=== PATIENT | female | born 1975 | race Caucasian/White ===

== ENCOUNTER 2019-01-26 16:41 | Emergency (ER) | payer OTHER ==
[2019-01-26 17:03] VITALS: BP 158/88; PULSE 120; RESP 20; TEMP 98.6
[2019-01-26] MEDS ORDERED: DIPH,PERTUS(ACELL)TETVAC-LF 0.5 ML VIAL IM ONE (17:11)
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
== END 2019-01-26 18:13 | disposition home or self-care (01) ==
LOC: EC 16:41
DX: S51.851A Open bite of right forearm, initial encounter (principal); Z88.0 Allergy status to penicillin; Z23 Encounter for immunization; Y04.1XXA Assault by human bite, initial encounter; Y93.89 Activity, other specified; Y92.811 Bus as the place of occurrence of the external cause; Y99.0 Civilian activity done for income or pay
CPT/HCPCS: 90471; 90715; 99283

== ENCOUNTER 2020-10-22 12:37 | Observation (INO) | payer OTHER ==
--- NOTE | 2020-10-22 13:03 | ED ---
General Adult HPI - General Chief complaint: Extremity Injury, Lower Stated complaint: Swelling in Legs Time Seen by Provider: 10/22/20 12:45 Source: patient, RN notes reviewed, old records reviewed Mode of arrival: ambulatory Limitations: no limitations - History of Present Illness Initial comments: This is a 44-year-old female presents emergency Department with a past medical history significant for diabetes and high blood pressure. Patient states starting yesterday she started noticing swelling in both legs but particularly the left one and became much more taut red and tender since yesterday. Patient denies any difficulty breathing shortest breath. Patient denies any chest pain. Patient denies any lightheadedness or dizziness. Patient denies any control pills. Patient denies any recent long trips or travel. Patient denies any abdominal pain patient denies nausea vomiting diarrhea. Patient denies any fever chills or cough. - Related Data Home Medications Medication Instructions Recorded Confirmed Desvenlafaxine Succinate [Pristiq 50 mg PO HS 10/22/20 10/22/20 ER] Ferrous Sulfate [Feosol] 325 mg PO DAILY 10/22/20 10/22/20 amLODIPine [Norvasc] 10 mg PO HS 10/22/20 10/22/20 lisinopriL [Zestril] 20 mg PO HS 10/22/20 10/22/20 metFORMIN HCL ER [Glucophage XR] 500 mg PO BID 10/22/20 10/22/20 Allergies Allergy/AdvReac Type Severity Reaction Status Date / Time amoxicillin [Amoxicillin] Allergy Rash/Hives Verified 10/22/20 12:44 Penicillins Allergy Unknown Verified 10/22/20 12:44 Childhood Review of Systems ROS Statement: Those systems with pertinent positive or pertinent negative responses have been documented in the HPI. ROS Other: All systems not noted in ROS Statement are negative. Past Medical History Past Medical History: Hypertension Additional Past Medical History / Comment(s): Obesity History of Any Multi-Drug Resistant Organisms: None Reported Past Surgical History: Section, Tubal Ligation Past Anesthesia/Blood Transfusion Reactions: No Reported Reaction Past Psychological History: Depression Smoking Status: Never smoker Past Alcohol Use History: Rare Past Drug Use History: None Reported - Past Family History Mother Family Medical History: Coronary Artery Disease (CAD), Diabetes Mellitus Father Family Medical History: Cancer, Coronary Artery Disease (CAD) General Exam - General Exam Comments Initial Comments: GENERAL: Patient is well-developed and well-nourished. Patient is nontoxic and well- hydrated and is in mild distress. ENT: Neck is soft and supple. No significant lymphadenopathy is noted. Oropharynx is clear. Moist mucous membranes. Neck has full range of motion without eliciting any pain. EYES: The sclera were anicteric and conjunctiva were pink and moist. Extraocular movements were intact and pupils were equal round and reactive to light. Eyelids were unremarkable. PULMONARY: Unlabored respirations. Good breath sounds bilaterally. No audible rales rhonchi or wheezing was noted. CARDIOVASCULAR: Patient is tachycardic at about 110 beats a minute ABDOMEN: Soft and nontender with normal bowel sounds. SKIN: Skin is clear with no lesions or rashes and otherwise unremarkable. NEUROLOGIC: Patient is alert and oriented x3. Cranial nerves II through XII are grossly intact. Motor and sensory are also intact. Normal speech, volume and content. Symmetrical smile. MUSCULOSKELETAL: Normal extremities with adequate strength and full range of motion. Right leg has 1+ edema left leg is very taut were swollen and edematous and very tender to touch and it is erythematous from the proximal leg down both posteriorly and anteriorly. Calf is very tender to palpation on the left. LYMPHATICS: No significant lymphadenopathy is noted PSYCHIATRIC: Normal psychiatric evaluation. Limitations: no limitations Course Vital Signs 10/22/20 12:46 Temperature 98.3 F Pulse Rate 114 H Respiratory 18 Rate Blood Pressure 117/83 O2 Sat by Pulse 96 Oximetry Medical Decision Making - Medical Decision Making Ultrasound showed no DVT but did show 2 large lymph nodes in the left groin. EKG shows normal sinus rhythm at [address] interval is 160 QRS is 90 QT interval 356 QTC is 452. Patient's EKG shows no ST segment elevation or depression. I spoke with Dr. Siddiqui and he wanted the patient admitted. I spoke with Dr. Farias she agreed to admit the patient admitted the patient she wanted me to consult Dr. Lang - Lab Data Result diagrams: 10/22/20 13:14 10/22/20 13:14 Lab Results 10/22/20 10/22/20 10/22/20 Range/Units 13:14 13:14 13:14 WBC 9.2 (3.8-10.6) k/uL RBC 5.09 (3.80-5.40) m/uL Hgb 13.4 (11.4-16.0) gm/dL Hct 40.4 (34.0-46.0) % MCV 79.4 L (80.0-100.0) fL MCH 26.4 (25.0-35.0) pg MCHC 33.2 (31.0-37.0) g/dL RDW 15.3 (11.5-15.5) % Plt Count 359 (150-450) k/uL MPV 7.3 Neutrophils % 73 % Lymphocytes % 20 % Monocytes % 4 % Eosinophils % 1 % Basophils % 0 % Neutrophils # 6.7 (1.3-7.7) k/uL Lymphocytes # 1.9 (1.0-4.8) k/uL Monocytes # 0.3 (0-1.0) k/uL Eosinophils # 0.1 (0-0.7) k/uL Basophils # 0.0 (0-0.2) k/uL PT 9.9 (9.0-12.0) sec INR 0.9 (<1.2) APTT 22.3 (22.0-30.0) sec Sodium 139 (137-145) mmol/L Potassium 4.0 (3.5-5.1) mmol/L Chloride 105 (98-107) mmol/L Carbon Dioxide 24 (22-30) mmol/L Anion Gap 10 mmol/L BUN 12 (7-17) mg/dL Creatinine 0.46 L (0.52-1.04) mg/dL Est GFR (CKD-EPI)AfAm >90 (>60 ml/min/1.73 sqM) Est GFR (CKD-EPI)NonAf >90 (>60 ml/min/1.73 sqM) Glucose 206 H (74-99) mg/dL Lactic Ac Sepsis Rflx Plasma Lactic Acid Jose Luis (0.7-2.0) mmol/L Calcium 9.6 (8.4-10.2) mg/dL Magnesium 1.6 (1.6-2.3) mg/dL Total Bilirubin 0.2 (0.2-1.3) mg/dL AST 23 (14-36) U/L ALT 20 (4-34) U/L Alkaline Phosphatase 80 (38-126) U/L Troponin I (0.000-0.034) ng/mL NT-Pro-B Natriuret Pep pg/mL Total Protein 7.0 (6.3-8.2) g/dL Albumin 4.1 (3.5-5.0) g/dL 10/22/20 10/22/20 10/22/20 Range/Units 13:14 13:14 13:14 WBC (3.8-10.6) k/uL RBC (3.80-5.40) m/uL Hgb (11.4-16.0) gm/dL Hct (34.0-46.0) % MCV (80.0-100.0) fL MCH (25.0-35.0) pg MCHC (31.0-37.0) g/dL RDW (11.5-15.5) % Plt Count (150-450) k/uL MPV Neutrophils % % Lymphocytes % % Monocytes % % Eosinophils % % Basophils % % Neutrophils # (1.3-7.7) k/uL Lymphocytes # (1.0-4.8) k/uL Monocytes # (0-1.0) k/uL Eosinophils # (0-0.7) k/uL Basophils # (0-0.2) k/uL PT (9.0-12.0) sec INR (<1.2) APTT (22.0-30.0) sec Sodium (137-145) mmol/L Potassium (3.5-5.1) mmol/L Chloride (98-107) mmol/L Carbon Dioxide (22-30) mmol/L Anion Gap mmol/L BUN (7-17) mg/dL Creatinine (0.52-1.04) mg/dL Est GFR (CKD-EPI)AfAm (>60 ml/min/1.73 sqM) Est GFR (CKD-EPI)NonAf (>60 ml/min/1.73 sqM) Glucose (74-99) mg/dL Lactic Ac Sepsis Rflx Plasma Lactic Acid Jose Luis 2.6 H* (0.7-2.0) mmol/L Calcium (8.4-10.2) mg/dL Magnesium (1.6-2.3) mg/dL Total Bilirubin (0.2-1.3) mg/dL AST (14-36) U/L ALT (4-34) U/L Alkaline Phosphatase (38-126) U/L Troponin I <0.012 (0.000-0.034) ng/mL NT-Pro-B Natriuret Pep 65 pg/mL Total Protein (6.3-8.2) g/dL Albumin (3.5-5.0) g/dL 10/22/20 Range/Units 13:54 WBC (3.8-10.6) k/uL RBC (3.80-5.40) m/uL Hgb (11.4-16.0) gm/dL Hct (34.0-46.0) % MCV (80.0-100.0) fL MCH (25.0-35.0) pg MCHC (31.0-37.0) g/dL RDW (11.5-15.5) % Plt Count (150-450) k/uL MPV Neutrophils % % Lymphocytes % % Monocytes % % Eosinophils % % Basophils % % Neutrophils # (1.3-7.7) k/uL Lymphocytes # (1.0-4.8) k/uL Monocytes # (0-1.0) k/uL Eosinophils # (0-0.7) k/uL Basophils # (0-0.2) k/uL PT (9.0-12.0) sec INR (<1.2) APTT (22.0-30.0) sec Sodium (137-145) mmol/L Potassium (3.5-5.1) mmol/L Chloride (98-107) mmol/L Carbon Dioxide (22-30) mmol/L Anion Gap mmol/L BUN (7-17) mg/dL Creatinine (0.52-1.04) mg/dL Est GFR (CKD-EPI)AfAm (>60 ml/min/1.73 sqM) Est GFR (CKD-EPI)NonAf (>60 ml/min/1.73 sqM) Glucose (74-99) mg/dL Lactic Ac Sepsis Rflx Y Plasma Lactic Acid Jose Luis (0.7-2.0) mmol/L Calcium (8.4-10.2) mg/dL Magnesium (1.6-2.3) mg/dL Total Bilirubin (0.2-1.3) mg/dL AST (14-36) U/L ALT (4-34) U/L Alkaline Phosphatase (38-126) U/L Troponin I (0.000-0.034) ng/mL NT-Pro-B Natriuret Pep pg/mL Total Protein (6.3-8.2) g/dL Albumin (3.5-5.0) g/dL Disposition Clinical Impression: Leg swelling, Lymphadenopathy Disposition: ADMITTED IP TO THIS HOSP Referrals: Tono Siddiqui MD [Primary Care Provider] - 1-2 days Time of Disposition: 15:39
[2020-10-22 13:26] LABS: Basophils % (A) 0 %; Eosinophils # (A) 0.1 k/uL (0-0.7); Eosinophils % (A) 1 %; HCT 40.4 % (34.0-46.0); HGB 13.4 gm/dL (11.4-16.0); Lymphocytes # (A) 1.9 k/uL (1.0-4.8); Lymphocytes % (A) 20 %; MCH 26.4 pg (25.0-35.0); MCHC 33.2 g/dL (31.0-37.0); MCV 79.4 fL (80.0-100.0); Mean Platelet Volume 7.3; Monocytes # (A) 0.3 k/uL (0-1.0); Monocytes % (A) 4 %; Neutrophils # (A) 6.7 k/uL (1.3-7.7); Neutrophils % (A) 73 %; Platelet Count 359 k/uL (150-450); RBC 5.09 m/uL (3.80-5.40); RDW 15.3 % (11.5-15.5); WBC 9.2 k/uL (3.8-10.6)
[2020-10-22 13:44] LABS: ALT 20 U/L (4-34); AST 23 U/L (14-36); African American GFR (CKD) >90 (>60 ml/min/1.73 sqM); Albumin 4.1 g/dL (3.5-5.0); Alkaline Phosphatase 80 U/L (38-126); Anion Gap 10 mmol/L; Blood Urea Nitrogen 12 mg/dL (7-17); Calcium 9.6 mg/dL (8.4-10.2); Carbon Dioxide 24 mmol/L (22-30); Chloride 105 mmol/L (98-107); Glucose 206 mg/dL (74-99); Magnesium 1.6 mg/dL (1.6-2.3); Non-African American GFR(CKD) >90 (>60 ml/min/1.73 sqM); Sodium 139 mmol/L (137-145); Total Bilirubin 0.2 mg/dL (0.2-1.3)
[2020-10-22 13:50] LABS: INR 0.9 (<1.2); Partial Thromboplastin Time 22.3 sec (22.0-30.0); Prothrombin Time 9.9 sec (9.0-12.0)
--- NOTE | 2020-10-22 13:52 | US ---
EXAMINATION TYPE: US venous doppler duplex LE LT DATE OF EXAM: 10/22/2020 1:36 PM COMPARISON: NONE CLINICAL HISTORY: Swollen left leg. edema, redness, pain left leg since yesterday SIDE PERFORMED: left TECHNIQUE: The lower extremity deep venous system is examined utilizing real time linear array sonog tiffanie with graded compression, doppler sonography and color-flow sonography. VESSELS IMAGED: Common Femoral Vein Deep Femoral Vein Greater Saphenous Vein * Femoral Vein Popliteal Vein Small Saphenous Vein * Proximal Calf Veins (* superficial vessels) Left Leg: no evidence of DVT as visualized. technical limitations due to patient's body habitus. lym ph nodes left groin = 4.4 x 1.4 x 1.7cm and 3.1 x 1.5 x 2.2cm IMPRESSION: 1. Limited exam as discussed above demonstrates no diagnostic evidence of DVT as visualized. 2. Left inguinal lymphadenopathy.
--- NOTE | 2020-10-22 14:36 | XR ---
EXAMINATION TYPE: XR chest 2V DATE OF EXAM: 10/22/2020 COMPARISON: NONE TECHNIQUE: PA and lateral views submitted. HISTORY: Shortness of breath FINDINGS: The lungs are clear and there is no pneumothorax, pleural effusion, or focal pneumonia. Subsegmenta l linear changes in coarsened interstitium. IMPRESSION: 1. Left upper lobe linear atelectasis with coarsened interstitium correlate for bronchitis, interstit ial pneumonitis or early venous congestion..
[2020-10-22] MEDS ORDERED: SODIUM CHLORIDE 0.9% 1,000 ML IV ONE (15:40)
[2020-10-22] MEDS ORDERED: FERROUS SULFATE 325 MG TAB PO STA (23:00)
[2020-10-23] MEDS: amLODIPine 10 MG TAB PO SCH ×2 (00:10→19:40)
[2020-10-23] MEDS: metFORMIN 500 MG TAB PO SCH ×3 (00:10→17:25)
[2020-10-23] MEDS: DESVENLAFAXINE SUCCINATE 50 MG TAB.ER.24H PO SCH ×2 (00:10→19:40)
[2020-10-23] MEDS: lisinopriL 20 MG TAB PO SCH ×2 (00:10→19:41)
[2020-10-23] MEDS ORDERED: IOPAMIDOL CONTRAST (ORAL USE) VIAL PO PRN (09:46)
--- NOTE | 2020-10-23 11:38 | P.HPIM ---
History of Present Illness H&P Date: 10/23/20 HISTORY OF PRESENT ILLNESS This is a 44-year-old female patient of Dr. Siddiqui with past medical history of hypertension, diabetes mellitus type 2, depression. Patient complains of left leg swelling that started on Tuesday. She states pain started first and she is going to bed and putting her leg and elevation and yesterday it was waxer tender. She ended up working yesterday was walking a lot and she then had increased edema and increased pain to the lower extremity. She denies having any fever or chills, no abdominal pain. Yesterday she states the leg was red but she denies any sun exposure, hair removal agents but she does have a shave flank. She has no skin lesions and no open wounds. She has tenderness to the left calf. She does relate that she was at [place] on the weekend and did a lot of walking. Patient presented to [facility] emergency center for evaluation. She was found to be afebrile, heart rate 114, blood pressure 117 /83, pulse ox 96% on room air. CBC was within normal limits. Electrolytes normal. Creatinine 0.46. Blood sugar 206. Liver function tests were normal. Lactic acid 2.6 and repeat 1.7. Troponin negative. ProBNP 65. D-dimer 0.55. Left lower extremity ultrasound was limited. Left inguinal lymphadenopathy with a 4.4 x 1.4 x 1.7 and 3.1 x 1.5 x 2.2 cm nodes. Chest x-ray reveals left upper lobe linear atelectasis with coarse and diminished stamina correlate for bronchitis, interstitial pneumonitis or early venous congestion. Patient is status post 1 L of IV fluid. Patient seen today in the emergency center waiting for observation bed, consult with general surgery. REVIEW OF SYSTEMS Constitutional: No fever, no chills, no night sweats. No weight change. No weakness, fatigue or lethargy. No daytime sleepiness. EENT: No headache. No blurred vision or double vision, no loss of vision. No loss of Hearing, no ringing in the ears, no dizziness. No nasal drainage or congestion. No epistaxis. No sore throat. Lungs: No shortness of breath, cough, no sputum production. No wheezing. Cardiovascular: No chest pain, Left lower extremity edema. No palpitations. No paroxysmal nocturnal dyspnea. No orthopnea. No lightheadedness or dizziness. No syncopal episodes. Abdominal: No abdominal pain. No nausea, vomiting. No diarrhea. No constipation. No bloody or tarry stools.. No loss of appetite. Genitourinary: No dysuria, increased frequency, urgency. No urinary retention. Musculoskeletal: No myalgias. No muscle weakness, no gait dysfunction, no frequent falls. No back pain. No neck pain. Left calf pain. Integumentary: No wounds, no lesions. No rash or pruritus. No unusual bruising. No change in hair or nails. Neurologic: No aphasia. No facial droop. No change in mentation. No head injury. No headache. No paralysis. No paresthesia. Psychiatric: No depression. No anxiety. No mood swings. Endocrine: Noted abnormal blood sugars. No weight change. No excessive sweating or thirst. No cold intolerance. SOCIAL HISTORY Patient is a lifelong nonsmoker, no illicit drug use, rare alcohol use. Patient lives at home with her boyfriend. FAMILY HISTORY Mother is alive with history of hypertension. Father is alive with history of hypertension. She denies any cancer history in the family. She has one brother with history of bone problems, no sisters. Patient's 1 son and 2 daughters with no major medical problems. PHYSICAL EXAMINATION Gen: This is a morbidly obese 44-year-old female. Patient is resting in the ER stretcher and appears to be comfortable and in no acute distress. HEENT: Head is atraumatic, normocephalic. Pupils equal, round. Sclerae is anicteric. NECK: Supple. No JVD. No lymphadenopathy. No thyromegaly. LUNGS: Clear to auscultation. No wheezes or rhonchi. No intercostal retractions. HEART: Regular rate and rhythm. No murmur. ABDOMEN: Soft. Bowel sounds are present. No masses. No tenderness. EXTREMITIES: Palpable enlarged left inguinal lymph node. 1+ edema to the left lower extremity, tenderness to the left calf. Dorsalis pedis palpable bilaterally. NEUROLOGICAL: Patient is awake, alert and oriented x3. Cranial nerves 2 through 12 are grossly intact. ASSESSMENT AND PLAN 1. Lymphedema left lower extremity. Patient started on Lasix 40 mg daily IV, obtain CPK, CRP and sed rate. NELY hose bilaterally. 2. Lymphadenopathy left groin. CAT scan of the abdomen and pelvis with contrast, consult with general surgery, C-reactive protein, CK, sed rate ordered 3. Hypertension. Continue lisinopril 20 mg at bedtime, Norvasc 10 mg at bedtime. 4. Diabetes mellitus type 2 uncontrolled with hyperglycemia. Continue metformin 500 mg twice daily, NovoLog scale before meals and at bedtime. Obtain A1c 5. Recurrent depression. Continue Pristiq ER 50 at bedtime. 6. GI prophylaxis. Pepcid. 7. DVT prophylaxis. Heparin subcu. Patient placed as an observation status. DISCHARGE PLAN Home. Impression and plan of care have been directed as dictated by the signing physician. Shanel Us nurse practitioner acting as scribe for signing physic deborah. Past Medical History Past Medical History: Hypertension Additional Past Medical History / Comment(s): Obesity History of Any Multi-Drug Resistant Organisms: None Reported Past Surgical History: Section, Tubal Ligation Past Anesthesia/Blood Transfusion Reactions: No Reported Reaction Past Psychological History: Depression Smoking Status: Never smoker Past Alcohol Use History: Rare Past Drug Use History: None Reported - Past Family History Mother Family Medical History: Coronary Artery Disease (CAD), Diabetes Mellitus Father Family Medical History: Cancer, Coronary Artery Disease (CAD) Medications and Allergies Home Medications Medication Instructions Recorded Confirmed Type Desvenlafaxine Succinate [Pristiq 50 mg PO HS 10/22/20 10/22/20 History ER] Ferrous Sulfate [Feosol] 325 mg PO DAILY 10/22/20 10/22/20 History amLODIPine [Norvasc] 10 mg PO HS 10/22/20 10/22/20 History lisinopriL [Zestril] 20 mg PO HS 10/22/20 10/22/20 History metFORMIN HCL ER [Glucophage XR] 500 mg PO BID 10/22/20 10/22/20 History Allergies Allergy/AdvReac Type Severity Reaction Status Date / Time amoxicillin [Amoxicillin] Allergy Rash/Hives Verified 10/22/20 12:44 Penicillins Allergy Unknown Verified 10/22/20 12:44 Childhood Physical Exam Vitals: Vital Signs Temp Pulse Resp BP Pulse Ox 10/23/20 06:00 98.8 F 95 20 106/67 97 10/23/20 05:00 66 22 112/70 97 10/23/20 03:00 67 20 110/70 98 10/23/20 00:11 98 16 110/70 97 10/22/20 21:08 86 18 143/90 96 10/22/20 12:46 98.3 F 114 H 18 117/83 96 Results CBC & Chem 7: 10/22/20 13:14 10/22/20 13:14 Labs: Abnormal Lab Results - Last 24 Hours (Table) 10/22/20 10/22/20 10/22/20 Range/Units 13:14 13:14 13:14 MCV 79.4 L (80.0-100.0) fL Creatinine 0.46 L (0.52-1.04) mg/dL Glucose 206 H (74-99) mg/dL Plasma Lactic Acid Jose Luis 2.6 H* (0.7-2.0) mmol/L
[2020-10-23] MEDS: FUROSEMIDE 10 MG/ML 4 ML VIAL IV SCH (11:50)
--- NOTE | 2020-10-23 12:02 | CT ---
EXAMINATION TYPE: CT abdomen pelvis w con DATE OF EXAM: 10/23/2020 HISTORY: left inguinal lymph node enlargement, palpable abnormality left groin. CT DLP: 2648.4mGycm Automated Exposure Control for Dose Reduction was Utilized. CONTRAST: CT scan of the abdomen and pelvis is performed with oral and with IV Contrast, patient injected with 100 mL of Isovue 300. COMPARISON: None. FINDINGS: LUNG BASES: No significant abnormality is appreciated. LIVER/GB: Liver is diffusely low dense consistent with diffuse fatty infiltration. Cholecystectomy cl ips are noted. PANCREAS: No significant abnormality is seen. SPLEEN: No significant abnormality is seen. ADRENALS: No significant abnormality is seen. KIDNEYS: Symmetric cortical medullary uptake and excretion without hydronephrosis seen bilaterally. BOWEL: Oral contrast does not reach colonic level making evaluation of bowel slightly suboptimal. Nor mal-appearing appendix in the right abdomen. No suspicious small or large bowel dilatation. Mild wall thickening in the transverse and left colon without surrounding fat stranding. Mild fat stranding an d fat dense structure left superior perirectal region axial image 71. UTERUS/ADNEXA: Anteverted heterogeneous uterus. Slightly lobulated prominence towards the fundus coul d reflect fibroid disease. Correlate clinically. Ovaries within normal limits in size. LYMPH NODES: Prominent but predominantly subcentimeter lymph nodes throughout the bilateral groin. Th ere is single enlarged 1.8 x 1.7 cm right groin lymph node axial image 93. There are 2 enlarged left groin lymph node measuring 2.7 x 1.5 cm inferiorly axial image 94 and 2.1 x 1.1 cm axial image 89 sup erior to this. Prominent bilateral external iliac chain lymph nodes including mildly enlarged left-si ded 1.6 x 1.2 cm lymph node axial image 73 prominent but subcentimeter left retroperitoneal lymph nod es along the abdominal aorta. STRUCTURES: No significant abnormality is seen. OTHER: No significant additional abnormality is seen. IMPRESSION: Nonspecific bilateral groin prominent and slightly enlarged lymph nodes extending to the external iliac chain level bilaterally. No definitive abnormal intra-abdominal adenopathy. Etiology u ncertain. Possible small focus of epiploic appendagitis in the left pelvis.
[2020-10-23 12:07] LABS: C Reactive Protein 4.5 mg/dL (<1.0)
[2020-10-23 12:58] LABS: Glucose,Whole Blood 121 mg/dL (75-99)
[2020-10-23] MEDS: INSULIN ASPART (NovoLOG) 100 UNIT/ML VIAL SQ SCH ×3 (13:07→19:40)
[2020-10-23 13:54] VITALS: RESP 16
--- NOTE | 2020-10-23 14:48 | P.GSCN ---
<Norma Mclaughlin - Last Filed: 10/23/20 13:09> History of Present Illness Consult date: 10/23/20 History of present illness: CHIEF COMPLAINT: Left leg swelling HISTORY OF PRESENT ILLNESS: This is a 43-year-old female with a known history of hypertension, diabetes mellitus type 2 and depression. Patient also reports a surgical history of lymph node removed on her neck that was benign. Also has history of tubal ligation. Patient reports having left leg swelling 1 day. She complaints of calf pain and also had noticed redness of the skin on the left leg. She also reports some mild swelling in the right leg but the left is worse. She states that she was at [facility] over the weekend and did a lot of walking. She also was in the car for about 4 hours with traveling to [place]. She had a venous Doppler that was completed that showed no evidence of DVT on the left leg. It did show left inguinal lymphadenopathy. Patient denies any pain in the groin. Denies any family history of lymphoma. Denies any fever chills or sweats. Denies any abdominal pain. Denies any nausea or vomiting. PAST MEDICAL HISTORY: See list. PAST SURGICAL HISTORY: See list. MEDICATIONS: See list. ALLERGIES: See list. SOCIAL HISTORY: No illicit drug use. REVIEW OF SYSTEMS: CONSTITUTIONAL: Denies fever or chills. HEENT: Denies blurred vision, vision changes, or eye pain. Denies hemoptysis ENDOCRINE: Denies heat or cold intolerance. CARDIOVASCULAR: Denies chest pain or pressure. RESPIRATORY: No shortness of breath. GASTROINTESTINAL: Denies abdominal pain. Denies nausea or vomiting. NEURO: Denies history of seizures. PSYCH: No depression or suicidal ideation HEMATOLOGIC: Denies bleeding disorders. LYMPHATIC: The patient denies any lumps and bumps around the neck. GENITOURINARY: Denies any blood in urine or increased urinary frequency. MUSCULOSKELETAL: Denies joint swelling. Denies decreased range of motion beyond patients baseline. SKIN: Denies pruitis. Denies rash. PHYSICAL EXAM: VITAL SIGNS: Reviewed GENERAL: Well-developed in no acute distress. HEENT: No sclera icterus. Extraocular movements grossly intact. Moist buccal mucosa. Head is atraumatic, normocephalic. Hears conversational speech. No nasal drainage. NECK: Supple without lymphadenopathy. CHEST: Non-labored respirations and equal bilateral excursions. CARDIOVASCULAR: Palpable 2+ radial pulses. ABDOMEN: Soft. Nondistended. Nontender MUSCULOSKELETAL: No clubbing or cyanosis. NEUROLOGIC: No focal or lateralizing signs. Cranial nerves II through XII grossly intact. PSYCH: Appropriate affect. Alert and oriented to person, place and time. SKIN: Well perfused. Good skin turgor. Extremities: Patient has tenderness to palpation of the calf. No significant erythema noted. Palpable lymph nodes noted in the left groin LABORATORY DATA: WBC 9.2 hemoglobin 13.4 platelets 359 INR 0.9 d-dimer 0.55 sodium 139 potassium 4.0 creatinine 0.46 glucose 206 Lactic 2.6 down to 1.7 LFTs normal CK levels 29 CRP 4.5 BNP 65 Troponin negative IMAGING: Computed tomography scan abdomen and pelvis showing nonspecific bilateral groin prominent and slightly enlarged lymph nodes extending to the external iliac chain level bilaterally. No definitive abnormal intra-abdominal adenopathy. Etiology uncertain. Possible small focus of epiploic appendagitis changes in the left pelvis. Venous Doppler negative for DVT lymphadenopathy in the left inguinal area noted ASSESSMENT: 1. Lymphadenopathy of the left groin 2. Left lower extremity swelling. DVT ruled out 3. Hypertension 4. Diabetes mellitus type 2 5. Depression PLAN: -No surgical intervention planned -Continue regular diet -Continue supportive care Thank you for this consultation Physician Director Of Transportation note has been reviewed by physician. Signing provider agrees with the documented findings, assessment, and plan of care. Past Medical History Past Medical History: Hypertension Additional Past Medical History / Comment(s): Obesity History of Any Multi-Drug Resistant Organisms: None Reported Past Surgical History: Section, Tubal Ligation Past Anesthesia/Blood Transfusion Reactions: No Reported Reaction Past Psychological History: Depression Smoking Status: Never smoker Past Alcohol Use History: Rare Past Drug Use History: None Reported - Past Family History Mother Family Medical History: Coronary Artery Disease (CAD), Diabetes Mellitus Father Family Medical History: Cancer, Coronary Artery Disease (CAD) Medications and Allergies Home Medications Medication Instructions Recorded Confirmed Type Desvenlafaxine Succinate [Pristiq 50 mg PO HS 10/22/20 10/22/20 History ER] Ferrous Sulfate [Feosol] 325 mg PO DAILY 10/22/20 10/22/20 History amLODIPine [Norvasc] 10 mg PO HS 10/22/20 10/22/20 History lisinopriL [Zestril] 20 mg PO HS 10/22/20 10/22/20 History metFORMIN HCL ER [Glucophage XR] 500 mg PO BID 10/22/20 10/22/20 History Allergies Allergy/AdvReac Type Severity Reaction Status Date / Time amoxicillin [Amoxicillin] Allergy Rash/Hives Verified 10/22/20 12:44 Penicillins Allergy Unknown Verified 10/22/20 12:44 Childhood Surgical - Exam Vital Signs Temp Pulse Resp BP Pulse Ox 98.3 F 114 H 18 117/83 96 10/22/20 12:46 10/22/20 12:46 10/22/20 12:46 10/22/20 12:46 10/22/20 12:46 Results - Labs 10/22/20 13:14 10/22/20 13:14 Abnormal Lab Results - Last 24 Hours (Table) 10/22/20 10/22/20 10/22/20 Range/Units 13:14 13:14 13:14 MCV 79.4 L (80.0-100.0) fL Creatinine 0.46 L (0.52-1.04) mg/dL Glucose 206 H (74-99) mg/dL POC Glucose (mg/dL) (75-99) mg/dL Plasma Lactic Acid Jose Luis 2.6 H* (0.7-2.0) mmol/L Creatine Kinase (30-135) U/L C-Reactive Protein (<1.0) mg/dL 10/23/20 10/23/20 Range/Units 11:22 12:55 MCV (80.0-100.0) fL Creatinine (0.52-1.04) mg/dL Glucose (74-99) mg/dL POC Glucose (mg/dL) 121 H (75-99) mg/dL Plasma Lactic Acid Jose Luis (0.7-2.0) mmol/L Creatine Kinase 29 L (30-135) U/L C-Reactive Protein 4.5 H (<1.0) mg/dL Diabetes panel 10/22/20 Range/Units 13:14 Sodium 139 (137-145) mmol/L Potassium 4.0 (3.5-5.1) mmol/L Chloride 105 (98-107) mmol/L Carbon Dioxide 24 (22-30) mmol/L BUN 12 (7-17) mg/dL Creatinine 0.46 L (0.52-1.04) mg/dL Glucose 206 H (74-99) mg/dL Calcium 9.6 (8.4-10.2) mg/dL AST 23 (14-36) U/L ALT 20 (4-34) U/L Alkaline Phosphatase 80 (38-126) U/L Total Protein 7.0 (6.3-8.2) g/dL Albumin 4.1 (3.5-5.0) g/dL Calcium panel 10/22/20 Range/Units 13:14 Calcium 9.6 (8.4-10.2) mg/dL Albumin 4.1 (3.5-5.0) g/dL Pituitary panel 10/22/20 Range/Units 13:14 Sodium 139 (137-145) mmol/L Potassium 4.0 (3.5-5.1) mmol/L Chloride 105 (98-107) mmol/L Carbon Dioxide 24 (22-30) mmol/L BUN 12 (7-17) mg/dL Creatinine 0.46 L (0.52-1.04) mg/dL Glucose 206 H (74-99) mg/dL Calcium 9.6 (8.4-10.2) mg/dL Adrenal panel 10/22/20 Range/Units 13:14 Sodium 139 (137-145) mmol/L Potassium 4.0 (3.5-5.1) mmol/L Chloride 105 (98-107) mmol/L Carbon Dioxide 24 (22-30) mmol/L BUN 12 (7-17) mg/dL Creatinine 0.46 L (0.52-1.04) mg/dL Glucose 206 H (74-99) mg/dL Calcium 9.6 (8.4-10.2) mg/dL Total Bilirubin 0.2 (0.2-1.3) mg/dL AST 23 (14-36) U/L ALT 20 (4-34) U/L Alkaline Phosphatase 80 (38-126) U/L Total Protein 7.0 (6.3-8.2) g/dL Albumin 4.1 (3.5-5.0) g/dL <Chiqui Lang - Last Filed: 10/23/20 14:47> History of Present Illness History of present illness: Patient seen and evaluated with above. Please see additional documentation below. CHIEF COMPLAINT: Left inguinal adenopathy HISTORY OF PRESENT ILLNESS: The patient is a 44-year-old female who reports less than 5 day history of acute swelling of the left leg. As a result, she presented to the emergency room for further workup. Ultrasound demonstrated no DVTs however presence of large lymph nodes. As a result general surgery is consulted. No reports of unintentional weight loss. No family history of leukemia or lymphoma. She denies any recent injuries or infections of her groin or lower leg her feet. PAST MEDICAL HISTORY: See list and reviewed PAST SURGICAL HISTORY: See list and reviewed MEDICATIONS: See list and reviewed ALLERGIES: See list and reviewed SOCIAL HISTORY: See list and reviewed FAMILY HISTORY: See list and reviewed REVIEW OF ORGAN SYSTEMS: CONSTITUTIONAL: No fevers or chills. Morbid obesity, BMI 42.0. EYES: Denies any trouble with vision. Wears glasses. HEENT: No difficulties with hearing. No nosebleeds. No difficulty swallowing. RESPIRATORY: Denies pneumonia. Denies any troubles with breathing or dyspnea on exertion. CARDIOVASCULAR: Denies any chest pain, palpitations, or recent heart attacks. Has hypertensive heart disease. GASTROINTESTINAL: Denies fatty food intolerance. Denies change in bowel habits and gas bloat. GENITOURINARY: Denies any blood in urine or increased urinary frequency. NEUROLOGICAL: Denies any numbness or tingling along the distal extremities. No seizure disorders or headaches. MUSCULOSKELETAL: Has back pain, stiffness or joint arthritis. SKIN: No current skin cancer. No rash. PSYCHIATRIC: Denies suicidal thoughts. Has depression. ENDOCRINE: Denies current thyroid disorders. Denies any blood sugar glucose intolerance. HEME/LYMPHATIC: Denies any lumps and bumps around the neck. No recent deep venous thrombosis. ALLERGY/IMMUNOLOGY: No immunoglobulin therapy. No immune deficiencies. BREAST: Denies current breast lumps, pain or nipple discharge. PHYSICAL EXAM: VITALS: Reviewed CONSTITUTIONAL: Well developed and in no acute distress. EYES: Conjuctivae without sclera icterus. Extraocular movements grossly intac t. HEAD, EARS, NOSE, THROAT: Moist buccal mucosa. Head is atraumatic, normocephalic. Hears conversational speech. No nasal drainage. NECK: Supple. No JV distention. No thyroidomegaly. RESPIRATORY: Non-labored respirations and equal bilateral excursions. No gross wheezes. CARDIOVASCULAR: Regular rate and rhythm. Palpable 2+ radial pulses. ABDOMEN: Obese nontender. LYMPH: No neck lymphadenopathy. MUSCULOSKELETAL: No clubbing cyanosis. Edema left lower extremity. SKIN: Warm and well perfused with good skin turgor. NEUROLOGIC: Cranial nerves II through XII grossly intact. Sensation upper and extremities intact. No focal or lateralizing signs. PSYCH: Appropriate affect. Alert and oriented to person, place and time. Displays appropriate insight. CLINCAL LABS: Reviewed. WBC normal 9.2. PT/INR within normal limits. C- reactive protein elevated. RADIOLOGY: Report reviewed. Venous duplex ultrasound demonstrates a 4 cm left inguinal lymph node 2. No evidence of DVTs. ASSESSMENT: 1. Left inguinal adenopathy. PLAN: 1. She denies any prolonged history of inguinal adenopathy or adenopathy of more than 3 months. As result this may be acute event or reactive lymphadeno fei. 2. Recommend additional workup with CT of the abdomen and pelvis for lymphoma workup. l 3. May benefit from oncology consultation pending results of imaging studies Thank you for this kind consultation. ADDENDUM: IMAING: CT of the abdomen and pelvis independently reviewed demonstrating no diffuse intra-abdominal lymphadenopathy. This is my independent interpretation. RADIOLOGY: CT of the abdomen and pelvis report remeasured lymph nodes of less than 3 cm of the left groin. Surgical - Exam Vital Signs Temp Pulse Resp BP Pulse Ox 98.3 F 114 H 18 117/83 96 10/22/20 12:46 10/22/20 12:46 10/22/20 12:46 10/22/20 12:46 10/22/20 12:46 Results - Labs 10/22/20 13:14 10/22/20 13:14 Abnormal Lab Results - Last 24 Hours (Table) 10/23/20 10/23/20 Range/Units 11:22 12:55 POC Glucose (mg/dL) 121 H (75-99) mg/dL Creatine Kinase 29 L (30-135) U/L C-Reactive Protein 4.5 H (<1.0) mg/dL Assessment and Plan (1) Hypertensive heart disease Current Visit: Yes Status: Acute Code(s): I11.9 - HYPERTENSIVE HEART DISEASE WITHOUT HEART FAILURE SNOMED Code(s): 86826204 (2) Morbid obesity due to excess calories Current Visit: Yes Status: Acute Code(s): E66.01 - MORBID (SEVERE) OBESITY DUE TO EXCESS CALORIES SNOMED Code(s): 509900037 (3) BMI 40.0-44.9, adult Current Visit: Yes Status: Acute Code(s): Z68.41 - BODY MASS INDEX [BMI]40.0-44.9, ADULT SNOMED Code(s): 344464205 (4) Leg swelling Current Visit: Yes Status: Acute Code(s): M79.89 - OTHER SPECIFIED SOFT TISSUE DISORDERS SNOMED Code(s): 516357689 (5) Lymphadenopathy Current Visit: Yes Status: Acute Code(s): R59.1 - GENERALIZED ENLARGED LYMPH NODES SNOMED Code(s): 15628680
[2020-10-23] MEDS: HEPARIN SODIUM,PORCINE/PF 5,000 UNIT/0.5 ML SYRINGE SQ SCH (17:25)
[2020-10-23 17:29] LABS: Glucose,Whole Blood 135 mg/dL (75-99)
[2020-10-23 19:36] LABS: Glucose,Whole Blood 144 mg/dL (75-99)
[2020-10-24] MEDS: HEPARIN SODIUM,PORCINE/PF 5,000 UNIT/0.5 ML SYRINGE SQ SCH ×2 (00:28→07:58)
[2020-10-24 07:33] LABS: Glucose,Whole Blood 141 mg/dL (75-99)
[2020-10-24] MEDS: INSULIN ASPART (NovoLOG) 100 UNIT/ML VIAL SQ SCH (07:57)
[2020-10-24] MEDS: FUROSEMIDE 10 MG/ML 4 ML VIAL IV SCH (07:58)
[2020-10-24] MEDS: metFORMIN 500 MG TAB PO SCH (07:59)
[2020-10-24 08:06] VITALS: BP 110/73; PULSE 85; TEMP 98.3
[2020-10-24] MEDS ORDERED: FAMOTIDINE 20 MG TAB PO SCH (09:00)
--- NOTE | 2020-10-24 09:02 | P.DS ---
Providers Date of admission: 10/22/20 15:48 Expected date of discharge: 10/24/20 Attending physician: Suzanne Farias Consults: 10/22/20 15:40 Consult Physician Urgent Consulting Provider: Chiqui Lang Consult Reason/Comments: Lymphadenopathy Do you want consulting provider notified?: Yes Primary care physician: Tono Siddiqui [facility] Course: HISTORY OF PRESENT ILLNESS This is a 44-year-old female patient of Dr. Siddiqui with past medical history of hypertension, diabetes mellitus type 2, depression. Patient complains of left leg swelling that started on Tuesday. She states pain started first and she is going to bed and putting her leg and elevation and yesterday it was char filter tank tender. She ended up working yesterday was walking a lot and she then had increased edema and increased pain to the lower extremity. She denies having any fever or chills, no abdominal pain. Yesterday she states the leg was red but she denies any sun exposure, hair removal agents but she does have a shave flank. She has no skin lesions and no open wounds. She has tenderness to the left calf. She does relate that she was at [place] on the weekend and did a lot of walking. Patient presented to [facility] emergency center for evaluation. She was found to be afebrile, heart rate 114, blood pressure 117/83, pulse ox 96% on room air. CBC was within normal limits. Electrolytes normal. Creatinine 0.46. Blood sugar 206. Liver function tests were normal. Lactic acid 2.6 and repeat 1.7. Troponin negative. ProBNP 65. D-dimer 0.55. Left lower extremity ultrasound was limited. Left inguinal lymphadenopathy with a 4.4 x 1.4 x 1.7 and 3.1 x 1.5 x 2.2 cm nodes. Chest x-ray reveals left upper lobe linear atelectasis with coarse and diminished stamina correlate for bronchitis, interstitial pneumonitis or early venous congestion. Patient is status post 1 L of IV fluid. Patient seen today in the emergency center waiting for observation bed, consult with general surgery. 10/24: Patient has been seen by general surgery with no plan for intervention at this time, okay to continue regular diet. Patient's left calf is much more soft today minimal tenderness which is improvement from yesterday. She states she did have diarrhea for 2 days but none today. She denies any abdominal pain. Patient has been afebrile, heart rate 85, blood pressure 110/73, pulse ox 96% on room air. C-reactive protein was 4.5. CK 29. Sed rate 20. Capillary blood glucose running between 121 and 144. Patient will be discharged home today in stable condition to continue Lasix for 10 days. ASSESSMENT AND PLAN 1. Lymphedema left lower extremity. 2. Lymphadenopathy left groin. 3. Hypertension. 4. Diabetes mellitus type 2 uncontrolled with hyperglycemia. 5. Recurrent depression. DISCHARGE PLAN Home. Impression and plan of care have been directed as dictated by the signing physician. Shanel Us nurse practitioner acting as scribe for signing physician. Patient Condition at Discharge: Good Plan - Discharge Summary Discharge Rx Participant: Yes New Discharge Prescriptions: New Potassium Chloride ER [K-Dur 20] 20 meq PO DAILY #10 tab Furosemide [Lasix] 40 mg PO DAILY #10 tablet Continue Ferrous Sulfate [Iron (65 MG Elemental)] 325 mg PO DAILY Desvenlafaxine Succinate [Pristiq ER] 50 mg PO HS metFORMIN HCL ER [Glucophage XR] 500 mg PO BID lisinopriL [Zestril] 20 mg PO HS amLODIPine [Norvasc] 10 mg PO HS Discharge Medication List Desvenlafaxine Succinate [Pristiq ER] 50 mg PO HS 10/22/20 [History] Ferrous Sulfate [Iron (65 MG Elemental)] 325 mg PO DAILY 10/22/20 [History] amLODIPine [Norvasc] 10 mg PO HS 10/22/20 [History] lisinopriL [Zestril] 20 mg PO HS 10/22/20 [History] metFORMIN HCL ER [Glucophage XR] 500 mg PO BID 10/22/20 [History] Furosemide [Lasix] 40 mg PO DAILY #10 tablet 10/24/20 [Rx] Potassium Chloride ER [K-Dur 20] 20 meq PO DAILY #10 tab 10/24/20 [Rx] Follow up Appointment(s)/Referral(s): Tono Siddiqui MD [Primary Care Provider] - 1 Week Chiqui Lang MD [STAFF PHYSICIAN] - 3 Weeks
--- NOTE | 2020-10-24 12:17 | P.PN ---
<Norma Mclaughlin - Last Filed: 10/24/20 12:10> Subjective Progress Note Date: 10/24/20 CHIEF COMPLAINT: Left leg swelling HISTORY OF PRESENT ILLNESS: Surgical service following regards to left groin lymphadenopathy. Patient having improvement in her left leg swelling. She would like to be discharged home. Computed tomography scan findings reviewed with patient. Results had shown nonspecific bilateral groin prominent and slightly enlarged lymph nodes extending to the external iliac chain level bilaterally. No definitive abnormal intra-abdominal adenopathy. Etiology uncertain. Findings concerning of lymphoma. Patient is afebrile. She is tolerating diet. Her sed rate a little this 20 CK 29 and CRP 4.5 PHYSICAL EXAM: VITAL SIGNS: Reviewed GENERAL: Well-developed in no acute distress. HEENT: No sclera icterus. Extraocular movements grossly intact. Moist buccal mucosa. Head is atraumatic, normocephalic. Hears conversational speech. No nasal drainage. NECK: Supple without lymphadenopathy. CHEST: Non-labored respirations and equal bilateral excursions. CARDIOVASCULAR: Palpable 2+ radial pulses. ABDOMEN: Soft. Nondistended. Nontender. MUSCULOSKELETAL: No clubbing or cyanosis. NEUROLOGIC: No focal or lateralizing signs. Cranial nerves II through XII grossly intact. PSYCH: Appropriate affect. Alert and oriented to person, place and time. SKIN: Well perfused. Good skin turgor. ASSESSMENT: 1. Left inguinal adenopathy. This may be an acute event or reactive lymphadenopathy 2. Left lower extremity swelling. DVT ruled out 3. Hypertension 4. Diabetes mellitus type 2 5. Depression PLAN: -Patient is stable from surgical standpoint for discharge -Continue supportive care [facility] Support note has been reviewed by physician. Signing provider agrees with the documented findings, assessment, and plan of care. Objective - Vital Signs Vital signs: Vital Signs Temp 98.3 F 10/24/20 07:00 Pulse 85 10/24/20 08:00 Resp 16 10/24/20 08:00 BP 110/73 10/24/20 07:00 Pulse Ox 96 10/24/20 07:00 Intake & Output 10/23/20 10/24/20 10/24/20 18:59 06:59 18:59 Intake Total 118 Balance 118 Weight 117.934 kg Intake: Oral 118 Other: Voiding Method Toilet Toilet # Voids 1 2 - Labs CBC & Chem 7: 10/22/20 13:14 10/22/20 13:14 Labs: Abnormal Lab Results - Last 24 Hours (Table) 10/23/20 10/23/20 10/23/20 Range/Units 12:55 17:28 19:34 POC Glucose (mg/dL) 121 H 135 H 144 H (75-99) mg/dL 10/24/20 Range/Units 07:31 POC Glucose (mg/dL) 141 H (75-99) mg/dL <RickeyChiqui N - Last Filed: 10/24/20 23:38> Subjective As above. CHIEF COMPLAINT: Left inguinal adenopathy HISTORY OF PRESENT ILLNESS: The patient is a 44-year-old female who presented with incidental inguinal adenopathy and leg swelling. She has no new complaints and is eager to go home. REVIEW OF ORGAN SYSTEMS: No fevers or chills. No nausea or vomiting. No chest pain. PHYSICAL EXAM: VITALS: Reviewed CONSTITUTIONAL: Well developed and in no acute distress. EYES: Conjuctivae without sclera icterus. Extraocular movements grossly intact. HEAD, EARS, NOSE, THROAT: Moist buccal mucosa. Head is atraumatic, normocephalic. Hears conversational speech. No nasal drainage. RESPIRATORY: Non-labored respirations and equal bilateral excursions. No gross wheezes. CARDIOVASCULAR: Regular rate and rhythm. Palpable 2+ radial pulses. ABDOMEN: Obese nontender. MUSCULOSKELETAL: No clubbing cyanosis. SKIN: Warm and well perfused with good skin turgor. NEUROLOGIC: Cranial nerves II through XII grossly intact. Sensation upper and extremities intact. No focal or lateralizing signs. PSYCH: Appropriate affect. Alert and oriented to person, place and time. Displays appropriate insight. CLINCAL LABS: Reviewed. Hgb A1c elevated 6.8. ASSESSMENT: 1. Left inguinal adenopathy. PLAN: 1. Clinically she is stable. Follow up with PCP as outpatient. 2. May have outpatient management with hematology/oncology Objective - Vital Signs Vital signs: Vital Signs Temp 98.3 F 10/24/20 07:00 Pulse 85 10/24/20 08:00 Resp 16 10/24/20 08:00 BP 110/73 10/24/20 07:00 Pulse Ox 96 10/24/20 07:00 Intake & Output 09/12/0410/24/20 10/25/20 06:59 18:59 06:59 Intake Total 118 Balance 118 Intake: Oral 118 Other: Voiding Method Toilet Toilet # Voids 2 - Labs CBC & Chem 7: 10/22/20 13:14 10/22/20 13:14 Labs: Abnormal Lab Results - Last 24 Hours (Table) 10/24/20 10/24/20 Range/Units 04:53 07:31 POC Glucose (mg/dL) 141 H (75-99) mg/dL Hemoglobin A1c 6.8 H (4.0-6.0) % Assessment and Plan (1) Hypertensive heart disease Status: Acute Code(s): I11.9 - HYPERTENSIVE HEART DISEASE WITHOUT HEART FAILURE SNOMED Code(s): 52960437 (2) Morbid obesity due to excess calories Status: Acute Code(s): E66.01 - MORBID (SEVERE) OBESITY DUE TO EXCESS CALORIES SNOMED Code(s): 122109657 (3) BMI 40.0-44.9, adult Status: Acute Code(s): Z68.41 - BODY MASS INDEX [BMI]40.0-44.9, ADULT SNOMED Code(s): 089551628 (4) Leg swelling Status: Acute Code(s): M79.89 - OTHER SPECIFIED SOFT TISSUE DISORDERS SNOMED Code(s): 470139992 (5) Lymphadenopathy Status: Acute Code(s): R59.1 - GENERALIZED ENLARGED LYMPH NODES SNOMED Code(s): 11345168 (6) Diabetes type 2, uncontrolled Status: Acute Code(s): E11.65 - TYPE 2 DIABETES MELLITUS WITH HYPERGLYCEMIA SNOMED Code(s): 539153824
[2020-10-24 12:28] LABS: Hemoglobin A1C 6.8 % (4.0-6.0)
== END 2020-10-24 11:49 | disposition home or self-care (01) ==
LOC: EC 12:37 → 6NMEDSUR 15:48
PROVIDERS: ADMIT Family Medicine; ATTEND Family Medicine
DX: I89.0 Lymphedema, not elsewhere classified (principal); R59.1 Generalized enlarged lymph nodes; M79.89 Other specified soft tissue disorders; I11.9 Hypertensive heart disease without heart failure; E11.65 Type 2 diabetes mellitus with hyperglycemia; F33.9 Major depressive disorder, recurrent, unspecified; E66.01 Morbid (severe) obesity due to excess calories; Z68.41 Body mass index [BMI] 40.0-44.9, adult; J98.11 Atelectasis; Z79.84 Long term (current) use of oral hypoglycemic drugs; Z79.899 Other long term (current) drug therapy; Z82.49 Family history of ischemic heart disease and other diseases of the circulatory system; Z98.891 History of uterine scar from previous surgery
CPT/HCPCS: 96376; 96372 ×2; 96361 ×2; 96374; 99285; 36415; 93005; 85379; 83880; 80053; 85652; 82550; 83605; 83735; 84484; 85025; 85610; 85730; 86140; 83036; 71046; 93971; 74177; G0378 ×3; J1940 ×2; Q9967; J1644 ×2

== ENCOUNTER 2020-12-18 02:48 | Observation (INO) | payer OTHER ==
[2020-12-18] MEDS ORDERED: SODIUM CHLORIDE 0.9% 1,000 ML IV STA (03:59)
[2020-12-18] MEDS ORDERED: HYDROmorphone 1 MG/ML 1 ML SYRINGE IVP STA (03:59)
[2020-12-18] MEDS ORDERED: KETOROLAC 15 MG/ML 1 ML VIAL IVP STA (03:59)
--- NOTE | 2020-12-18 04:28 | ED ---
Back Pain HPI - General Chief Complaint: Back Pain/Injury Stated Complaint: Back pain Time Seen by Provider: 12/18/20 02:50 Source: patient - Related Data Home Medications Medication Instructions Recorded Confirmed Desvenlafaxine Succinate [Pristiq 50 mg PO HS 10/22/20 10/22/20 ER] Ferrous Sulfate [Iron (65 MG 325 mg PO DAILY 10/22/20 10/22/20 Elemental)] amLODIPine [Norvasc] 10 mg PO HS 10/22/20 10/22/20 lisinopriL [Zestril] 20 mg PO HS 10/22/20 10/22/20 metFORMIN HCL ER [Glucophage XR] 500 mg PO BID 10/22/20 10/22/20 Previous Rx's Medication Instructions Recorded Furosemide [Lasix] 40 mg PO DAILY #10 tablet 10/24/20 Potassium Chloride ER [K-Dur 20] 20 meq PO DAILY #10 tab 10/24/20 Allergies Allergy/AdvReac Type Severity Reaction Status Date / Time amoxicillin [Amoxicillin] Allergy Rash/Hives Verified 12/18/20 03:03 Penicillins Allergy Unknown Verified 12/18/20 03:03 Childhood Review of Systems ROS Statement: Those systems with pertinent positive or pertinent negative responses have been documented in the HPI. ROS Other: All systems not noted in ROS Statement are negative. Past Medical History Past Medical History: Hypertension Additional Past Medical History / Comment(s): Obesity History of Any Multi-Drug Resistant Organisms: None Reported Past Surgical History: Section, Cholecystectomy, Tubal Ligation Past Anesthesia/Blood Transfusion Reactions: No Reported Reaction Past Psychological History: Depression Smoking Status: Never smoker Past Alcohol Use History: Rare Past Drug Use History: None Reported - Past Family History Mother Family Medical History: Coronary Artery Disease (CAD), Diabetes Mellitus Father Family Medical History: Cancer, Coronary Artery Disease (CAD) Course Vital Signs 12/18/20 03:00 Temperature 98.4 F Pulse Rate 100 Respiratory 19 Rate Blood Pressure 137/82 O2 Sat by Pulse 98 Oximetry Medical Decision Making - Lab Data Result diagrams: 12/18/20 04:29 12/18/20 04:29 Lab Results 12/18/20 12/18/20 12/18/20 Range/Units 04:29 04:29 04:29 WBC 11.2 H (3.8-10.6) k/uL RBC 4.80 (3.80-5.40) m/uL Hgb 12.8 (11.4-16.0) gm/dL Hct 39.3 (34.0-46.0) % MCV 81.9 (80.0-100.0) fL MCH 26.7 (25.0-35.0) pg MCHC 32.7 (31.0-37.0) g/dL RDW 14.8 (11.5-15.5) % Plt Count 384 (150-450) k/uL MPV 7.7 Neutrophils % 71 % Lymphocytes % 22 % Monocytes % 4 % Eosinophils % 2 % Basophils % 0 % Neutrophils # 8.0 H (1.3-7.7) k/uL Lymphocytes # 2.5 (1.0-4.8) k/uL Monocytes # 0.4 (0-1.0) k/uL Eosinophils # 0.2 (0-0.7) k/uL Basophils # 0.0 (0-0.2) k/uL PT 10.3 (9.0-12.0) sec INR 1.0 (<1.2) APTT 23.8 (22.0-30.0) sec Sodium 138 (137-145) mmol/L Potassium 4.4 (3.5-5.1) mmol/L Chloride 107 (98-107) mmol/L Carbon Dioxide 22 (22-30) mmol/L Anion Gap 9 mmol/L BUN 14 (7-17) mg/dL Creatinine 0.53 (0.52-1.04) mg/dL Est GFR (CKD-EPI)AfAm >90 (>60 ml/min/1.73 sqM) Est GFR (CKD-EPI)NonAf >90 (>60 ml/min/1.73 sqM) Glucose 167 H (74-99) mg/dL Calcium 8.9 (8.4-10.2) mg/dL Phosphorus 3.3 (2.5-4.5) mg/dL Magnesium 2.0 (1.6-2.3) mg/dL Total Bilirubin 0.3 (0.2-1.3) mg/dL AST 16 (14-36) U/L ALT 15 (4-34) U/L Alkaline Phosphatase 75 (38-126) U/L Total Protein 6.8 (6.3-8.2) g/dL Albumin 3.9 (3.5-5.0) g/dL Disposition Clinical Impression: Morbid obesity due to excess calories, Sciatica, Lumbar radiculopathy, Mid back pain Narrative: r/o Cauda Equina Disposition: ADMITTED IP TO THIS HOSP Condition: Fair Is patient prescribed a controlled substance at d/c from ED?: No Referrals: Tono Siddiqui MD [Primary Care Provider] - 1-2 days
[2020-12-18 04:53] LABS: Basophils % (A) 0 %; Eosinophils # (A) 0.2 k/uL (0-0.7); Eosinophils % (A) 2 %; HCT 39.3 % (34.0-46.0); HGB 12.8 gm/dL (11.4-16.0); Lymphocytes # (A) 2.5 k/uL (1.0-4.8); Lymphocytes % (A) 22 %; MCH 26.7 pg (25.0-35.0); MCHC 32.7 g/dL (31.0-37.0); MCV 81.9 fL (80.0-100.0); Mean Platelet Volume 7.7; Monocytes # (A) 0.4 k/uL (0-1.0); Monocytes % (A) 4 %; Neutrophils % (A) 71 %; Platelet Count 384 k/uL (150-450); RDW 14.8 % (11.5-15.5); WBC 11.2 k/uL (3.8-10.6)
[2020-12-18 05:01] LABS: Partial Thromboplastin Time 23.8 sec (22.0-30.0); Prothrombin Time 10.3 sec (9.0-12.0)
--- NOTE | 2020-12-18 05:03 | CT ---
EXAMINATION TYPE: CT lumbar spine wo con DATE OF EXAM: 12/18/2020 COMPARISON: 10/23/2020 HISTORY: pain. prior xray on PACS, but no prior CT CT DLP: 1168.4 mGycm Automated exposure control for dose reduction was used. The lumbar vertebra have normal alignment. Posterior elements are intact. Disc spaces are fairly norm al. There is a mild posterior disc bulging at L5-S1. There is no compression fracture. Sacroiliac nabila nts are intact. There is hemangioma in the anterior aspect of the L3 vertebral body. IMPRESSION: Mild posterior disc bulging at L5-S1. No significant spinal stenosis. No fracture. No adverse change compared to old exam.
--- NOTE | 2020-12-18 05:06 | CT ---
EXAMINATION TYPE: CT sacrum wo con DATE OF EXAM: 12/18/2020 COMPARISON: None HISTORY: pain. prior xray on PACS, but no prior CT CT DLP: 1168.4 mGycm Automated exposure control for dose reduction was used. Images obtained from L5 to S1 vertebra with no contrast. These segments have normal alignment. There is no compression fracture. There is a mild posterior dis c bulging at L4-5 and L5-S1. There is a mild narrowing of the spinal canal at L4-5 due to disc bulgin g and mild facet arthropathy. No spinal stenosis at L5-S1. The sacroiliac joints are intact. There is no paraspinal mass. IMPRESSION: Minor degenerative disc changes at L4-5 and L5-S1. No fracture.
[2020-12-18 05:11] LABS: ALT 15 U/L (4-34); AST 16 U/L (14-36); African American GFR (CKD) >90 (>60 ml/min/1.73 sqM); Albumin 3.9 g/dL (3.5-5.0); Alkaline Phosphatase 75 U/L (38-126); Anion Gap 9 mmol/L; Blood Urea Nitrogen 14 mg/dL (7-17); Calcium 8.9 mg/dL (8.4-10.2); Carbon Dioxide 22 mmol/L (22-30); Chloride 107 mmol/L (98-107); Glucose 167 mg/dL (74-99); Non-African American GFR(CKD) >90 (>60 ml/min/1.73 sqM); Phosphorus 3.3 mg/dL (2.5-4.5); Potassium 4.4 mmol/L (3.5-5.1); Sodium 138 mmol/L (137-145); Total Bilirubin 0.3 mg/dL (0.2-1.3); Total Protein 6.8 g/dL (6.3-8.2)
[2020-12-18] MEDS ORDERED: NALOXONE 0.4 MG/ML 1 ML VIAL IV PRN (06:36)
[2020-12-18] MEDS ORDERED: HYDROmorphone 1 MG/ML 1 ML SYRINGE IVP PRN (06:36)
[2020-12-18] MEDS ORDERED: LORazepam 2 MG/ML INJ IV PRN (06:36)
[2020-12-18] MEDS ORDERED: ONDANSETRON 4 MG/2 ML VIAL IVP PRN (06:36)
[2020-12-18] MEDS ORDERED: SODIUM CHLORIDE 0.9% 1,000 ML IV SCH (06:45)
[2020-12-18] MEDS ORDERED: BACLOFEN 10 MG TAB PO PRN (10:16)
[2020-12-18] MEDS: metFORMIN 500 MG TAB PO SCH ×2 (11:45→17:29)
[2020-12-18] MEDS: DEXAMETHASONE SOD PHOSPHATE 4 MG/ML 1 ML VIAL IVP SCH ×2 (11:45→21:00)
[2020-12-18 12:09] LABS: Glucose,Whole Blood 115 mg/dL (75-99)
[2020-12-18 12:54] LABS: Appearance,Urine Clear (Clear); Bilirubin,Urine Negative (Negative); Blood,Urine Negative (Negative); Color,Urine Yellow; Glucose,Urine (UA) Negative (Negative); Ketones,Urine Negative (Negative); Leukocyte Esterase,Urine Negative (Negative); Nitrite,Urine Negative (Negative); PH, Urine 6.5 (5.0-8.0); Protein,Urine Trace (Negative); Specific Gravity,Urine 1.025 (1.001-1.035); Urobilinogen,Urine <2.0 mg/dL (<2.0)
--- NOTE | 2020-12-18 13:47 | P.PN ---
Progress Note - Text Progress Note Date: 12/18/20 Imaging reviewed. Full consult pending. Patient is currently down and MRI for her lumbar spine MRI. Per report she is ambulating around the the room and has been voiding on her own power per nursing. She has used minimal pain medications and really does not complain of any pain. She does complain of some tensioning signs it sounds like however she has had no bowel or bladder incontinence as of late. Computed tomography scan was reviewed minor disc bulges noted minor spondylosis noted. MRI is better for evaluation. We will reevaluate once MRI is completed. Nursing to obtain PVR on patient and record
--- NOTE | 2020-12-18 14:10 | P.CNOR ---
<Demar Peck - Last Filed: 12/18/20 14:06> History of Present Illness - [facility] Consult date: 12/18/20 Requesting physician: Kai Tejada Consult reason: other ([email or web address]) History of present illness: The patient is a 45-year-old female presenting to the emergency department this morning with worsening right-sided lower back pain. Patient was seen this morning lying semirecumbent bed. Patient states this back pain began 3-4 weeks ago. Patient says she was lying in bed set up and began to walk when she felt a pinch in her lower back at the midline region. She says this pain would come and go randomly mostly when she changes positions from sitting to standing. Patient rates the pain currently as 7/10. What prompted the patient go the ER was that she said last night she got in bed and loss of bladder control and she urinated a significant amount in bed. Patient says before she has cough ed/sneezed before she does dribble a little bit of urine, but for the most part she is able to control it and stop and go to the bathroom. Patient denies loss of bowel control. Patient denies perineal numbness/tingling. Patient states most of his back pain is in the midline lumbar region and more so towards the right side. Patient does say there is some radiation of pain down the right leg when she does place her leg off the bed. Patient denies any recent trauma/falls. Patient denies any previous orthopedic surgical history. Patient denies any chest pain, fever, shortness breath, nausea, vomiting, change in vision, loss of bowel control. Past Medical History Past Medical History: Hypertension Additional Past Medical History / Comment(s): Obesity History of Any Multi-Drug Resistant Organisms: None Reported Past Surgical History: Section, Cholecystectomy, Tubal Ligation Past Anesthesia/Blood Transfusion Reactions: No Reported Reaction Past Psychological History: Depression Smoking Status: Never smoker Past Alcohol Use History: Rare Past Drug Use History: None Reported - Past Family History Mother Family Medical History: Coronary Artery Disease (CAD), Diabetes Mellitus Father Family Medical History: Coronary Artery Disease (CAD), Hypertension Medications and Allergies Home Medications Medication Instructions Recorded Confirmed Type Desvenlafaxine Succinate [Pristiq 50 mg PO HS 10/22/20 12/18/20 History ER] amLODIPine [Norvasc] 10 mg PO HS 10/22/20 12/18/20 History lisinopriL [Zestril] 20 mg PO HS 10/22/20 12/18/20 History metFORMIN HCL ER [Glucophage XR] 500 mg PO BID 10/22/20 12/18/20 History Allergies Allergy/AdvReac Type Severity Reaction Status Date / Time amoxicillin [Amoxicillin] Allergy Rash/Hives Verified 12/18/20 06:44 Penicillins Allergy Unknown Verified 12/18/20 06:44 Childhood Physical Examination Inspection: Negative for any erythema, ecchymosis, open fractures, nodules, significant deformity. Sensation: Sensation is equal, symmetric, bilaterally intact throughout upper and lower extremities. Palpation: There is significant tenderness to patient throughout the lower midline lumbar region and sacral region. Moderate tenderness to patient along the right SI joint. Nontender to palpation throughout rest exam. Range of motion: Patient has full range of motion bilateral upper extremities wrist flexion/extension, elbow flexion/extension, shoulder abduction, internal/external rotation. Patient has full range of motion of left lower extremity in resisted and hip flexion/extension, knee flexion extension, plantar flexion the/dorsiflexion. Limited right leg and hip flexion. Full range of motion in right knee flexion/extension abd dorsi/plantarflexion Motor: 5/5 in all major motor groups in the upper extremities bilaterally. 4/5 in resisted knee flexion/extension of the right leg. 3/5 in resisted hip flexion the right leg. 5/5 in all major motor groups the left leg Neurovascular status: Capillary refill below 3 seconds bilaterally in digits of the toes. DP pulses intact, 2+ bilaterally. Special tests: Negative Maynor's bilaterally: Negative Homans bilaterally: Negative clonus bilaterally. Results - Labs Labs: Abnormal Lab Results - Last 24 Hours (Table) 12/18/20 12/18/20 Range/Units 04:29 04:29 WBC 11.2 H (3.8-10.6) k/uL Neutrophils # 8.0 H (1.3-7.7) k/uL Glucose 167 H (74-99) mg/dL H & H 12/18/20 Range/Units 04:29 Hgb 12.8 (11.4-16.0) gm/dL Hct 39.3 (34.0-46.0) % Coagulation 12/18/20 Range/Units 04: INR 1.0 (<1.2) Result Diagrams: 12/18/20 04:29 12/18/20 04:29 Assessment and Plan Assessment: 1. Low back pain Plan: 1. Low back pain - computed tomography scan of lumbar spine has been reviewed with my attending, Dr. Mckeon. There is some generalized spondylosis and disc bulging at a couple levels in the lumbosacral region. Currently patient is getting MRI of lumbar spine. We will await results of MRI of lumbar spine before proceeding wit any further potential intervention. Since this morning, patient is able to void on her own. Nursing to collect PVR. We'll continue follow patient while in hospital 2. Appreciate medical management 3. Pain management - baclofen 4. DVT prophylaxis - mechanical 5. GI prophylaxis 6. PT/OT - weightbearing as tolerated Time with Patient: Less than 30 <Benton Mckeon - Last Filed: 12/18/20 15:31> Physical Examination Osteopathic Statement: *. No significant issues noted on an osteopathic struct ural exam other than those noted in the History and Physical/Consult. Results - Labs Labs: Abnormal Lab Results - Last 24 Hours (Table) 12/18/20 12/18/20 12/18/20 Range/Units 04:29 04:29 12:00 WBC 11.2 H (3.8-10.6) k/uL Neutrophils # 8.0 H (1.3-7.7) k/uL Glucose 167 H (74-99) mg/dL POC Glucose (mg/dL) (75-99) mg/dL Urine Protein Trace H (Negative) 12/18/20 Range/Units 12:05 WBC (3.8-10.6) k/uL Neutrophils # (1.3-7.7) k/uL Glucose (74-99) mg/dL POC Glucose (mg/dL) 115 H (75-99) mg/dL Urine Protein (Negative) H & H 12/18/20 Range/Units 04:29 Hgb 12.8 (11.4-16.0) gm/dL Hct 39.3 (34.0-46.0) % Coagulation 12/18/20 Range/Units 04: INR 1.0 (<1.2) Result Diagrams: 12/18/20 04:29 12/18/20 04:29
--- NOTE | 2020-12-18 14:19 | P.HPIM ---
History of Present Illness H&P Date: 12/18/20 HISTORY OF PRESENT ILLNESS This is a 45-year-old female patient of Dr. Siddiqui with past medical history of hypertension, diabetes mellitus type 2, depression. Patient said hospi talization due to lymphadenopathy of the lower left extremity and left groin. Patient now states that she has had a pinching feeling in the right side of her lower back that started about 3-4 weeks ago that comes and goes in the lower back feels tight. She tried to exercise on a ball instruction and also walking and now the pain continues to stay and rated at 10/10 yesterday. She denies any recent have fever lifting or extreme exercise. 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 She states that yesterday she did have loss of bladder control which she described as getting up to the bathroom during the night every 2 hours and then she couldn't hold it. No loss of bowel control. She states when she sneezes or coughs she loses bladder control. Patient presented to [facility] emergency center for evaluation. Vital signs stable. WBC 11.2, hemoglobin 12.8. Electrolytes and renal function normal. Blood sugar 167. Liver function tests normal. Urinalysis negative for infection. Coronavirus PCR not detected. CAT scan of the lumbar spine revealed mild posterior disc bulging at L5-S1. No significant spinal stenosis. No fracture. No adverse change compared to old exam. CAT scan of the sacrum revealed minor degenerative disc changes at L4-5 and L5- S1. No fracture. Patient has been seen by Dr. Mckeon and MRI of the lumbar spine has been ordered. REVIEW OF SYSTEMS Constitutional: No fever, no chills, no night sweats. No weight change. No weakness, fatigue or lethargy. No daytime sleepiness. EENT: No headache. No blurred vision or double vision, no loss of vision. No loss of Hearing, no ringing in the ears, no dizziness. No nasal drainage or congestion. No epistaxis. No sore throat. Lungs: No shortness of breath, cough, no sputum production. No wheezing. Cardiovascular: No chest pain, Left lower extremity edema. No palpitations. No paroxysmal nocturnal dyspnea. No orthopnea. No lightheadedness or dizziness. No syncopal episodes. Abdominal: No abdominal pain. No nausea, vomiting. No diarrhea. No constipation. No bloody or tarry stools.. No loss of appetite. Genitourinary: No dysuria, increased frequency, urgency. No urinary retention. Musculoskeletal: No myalgias. No muscle weakness, no gait dysfunction, no frequent falls. Reports back pain. No neck pain. No calf pain. Integumentary: No wounds, no lesions. No rash or pruritus. No unusual brui sing. No change in hair or nails. Neurologic: No aphasia. No facial droop. No change in mentation. No head injury. No headache. No paralysis. No paresthesia. Psychiatric: No depression. No anxiety. No mood swings. Endocrine: Noted abnormal blood sugars. No weight change. No excessive sweating or thirst. No cold intolerance. SOCIAL HISTORY Patient is a lifelong nonsmoker, no illicit drug use, rare alcohol use. Patient lives at home with her boyfriend. FAMILY HISTORY Mother is alive with history of hypertension. Father is alive with history of hypertension. She denies any cancer history in the family. She has one brother with history of bone problems, no sisters. Patient's 1 son and 2 daughters with no major medical problems. PHYSICAL EXAMINATION Gen: This is a morbidly obese 45-year-old female. Patient is resting in bed and appears to be comfortable and in no acute distress. HEENT: Head is atraumatic, normocephalic. Pupils equal, round. Sclerae is anicteric. NECK: Supple. No JVD. No lymphadenopathy. No thyromegaly. LUNGS: Clear to auscultation. No wheezes or rhonchi. No intercostal retractions. HEART: Regular rate and rhythm. No murmur. ABDOMEN: Soft. Bowel sounds are present. No masses. No tenderness. BACK: No tenderness to the thoracic spine. Patient does have point tenderness to the right lumbar area at approximately L4 5. This is on the right side of the spinal column medially. EXTREMITIES: No pedal edema. No calf tenderness. Dorsalis pedis palpable bilaterally. NEUROLOGICAL: Patient is awake, alert and oriented x3. Cranial nerves 2 through 12 are grossly intact. ASSESSMENT AND PLAN 1. Back pain secondary to degenerative disc disease. Consult with orthopedic spine appreciated. Patient started on baclofen 10 mg 3 times daily as needed, Dilaudid 1 mg every 3 hours as needed, Toradol received once. IV fluids will be discontinued. MRI of the lumbar spine has been ordered by orthopedics. 2. Previous admission for Lymphadenopathy left lower extremity, resolved. 3. Hypertension. Continue lisinopril 20 mg at bedtime, Norvasc 10 mg at bedtime. 4. Diabetes mellitus type 2 uncontrolled with hyperglycemia. Continue met formin 500 mg twice daily, NovoLog scale before meals and at bedtime. 5. Recurrent depression. Continue Pristiq ER 50 at bedtime. 6. GI prophylaxis. Pepcid. 7. DVT prophylaxis. Heparin subcu. Patient placed as an observation status. DISCHARGE PLAN Home. Impression and plan of care have been directed as dictated by the signing physician. Shanel Us nurse practitioner acting as scribe for signing physician. Past Medical History Past Medical History: Hypertension Additional Past Medical History / Comment(s): Obesity History of Any Multi-Drug Resistant Organisms: None Reported Past Surgical History: Section, Cholecystectomy, Tubal Ligation Past Anesthesia/Blood Transfusion Reactions: No Reported Reaction Past Psychological History: Depression Smoking Status: Never smoker Past Alcohol Use History: Rare Past Drug Use History: None Reported - Past Family History Mother Family Medical History: Coronary Artery Disease (CAD), Diabetes Mellitus Father Family Medical History: Coronary Artery Disease (CAD), Hypertension Medications and Allergies Home Medications Medication Instructions Recorded Confirmed Type Desvenlafaxine Succinate [Pristiq 50 mg PO HS 10/22/20 12/18/20 History ER] amLODIPine [Norvasc] 10 mg PO HS 10/22/20 12/18/20 History lisinopriL [Zestril] 20 mg PO HS 10/22/20 12/18/20 History metFORMIN HCL ER [Glucophage XR] 500 mg PO BID 10/22/20 12/18/20 History Allergies Allergy/AdvReac Type Severity Reaction Status Date / Time amoxicillin [Amoxicillin] Allergy Rash/Hives Verified 12/18/20 06:44 Penicillins Allergy Unknown Verified 12/18/20 06:44 Childhood Physical Exam Vitals: Vital Signs Temp Pulse Pulse Resp BP BP Pulse Ox 12/18/20 07:23 98 20 132/88 99 12/18/20 07:12 98.6 F 85 18 132/84 96 12/18/20 03:00 98.4 F 100 19 137/82 98 Intake and Output 1112/18/20 12/18/20 22:59 06:59 14:59 Other: Weight 115.666 kg 115.666 kg Results CBC & Chem 7: 12/18/20 04:29 12/18/20 04:29 Labs: Abnormal Lab Results - Last 24 Hours (Table) 12/18/20 12/18/20 Range/Units 04:29 04:29 WBC 11.2 H (3.8-10.6) k/uL Neutrophils # 8.0 H (1.3-7.7) k/uL Glucose 167 H (74-99) mg/dL Thrombosis Risk Factor Assmnt - Choose All That Apply Each Factor Represents 1 point: Age 41-60 years, Obesity (BMI >25) Other Risk Factors: No Other congenital or acquired thrombophilia - If yes, enter type in comment: No Thrombosis Risk Factor Assessment Total Risk Factor Score: 2 Thrombosis Risk Factor Assessment Level: Low Risk
[2020-12-18] MEDS: INSULIN ASPART (NovoLOG) 100 UNIT/ML VIAL SQ SCH ×3 (14:23→21:00)
--- NOTE | 2020-12-18 14:52 | MR ---
EXAMINATION TYPE: MR lumbar spine wo/w con DATE OF EXAM: 12/18/2020 COMPARISON: CT lumbar spine December 18, 2020 HISTORY: LE weakness TECHNIQUE: Multiplanar, multisequence images of the lumbar spine is performed without and with IV contrast, util izing 11.5 mL intravenous Gadavist FINDINGS: Sagittal images of the lumbar spine show vertebral body heights to remain satisfactory. The re is stable slight grade 1 retrolisthesis L4 on L5. Multilevel disc desiccation L3-L4 through the L5 -S1 levels. Mild disc space narrowing L5-S1 level redemonstrated. The conus medullaris is normal in position and signal ending superior L1 level. Anterior hemangioma involving L3 vertebra redemonstrate d. No suspicious postcontrast enhancement. Axial images show T12-L1, L1-L2, L2-L3, and L3-L4 levels all to appear within normal limits. Axial images at L4-L5 level mild facet arthropathy with tiny right paracentral disc protrusion mildly effacing the anterior thecal sac. Patent bilateral neural foramina. Axial images of the L5-S1 level show mild to moderate right greater than left facet arthropathy. Ther e is left paracentral disc protrusion. Spinal canal is preserved as there is increased epidural fat a t this level. Patent bilateral neural foramina. Paraspinal muscle bulk is maintained. IMPRESSION: Mild degenerative changes in the lower lumbar spine as detailed above. No suspicious enha ncement is evident.
--- NOTE | 2020-12-18 15:31 | P.PN ---
Progress Note - Text Progress Note Date: 12/18/20 MRI of L spine reviewed. Some degenerative and spondylotic changes at L4-S1. Mild central stenosis. No large compressive lesions, herniations or masses. Moderate L foraminal stenosis L4-5. NO fracture dislocation or instability noted. Boggy facets L4-S1 noted as well. Would recommend conservative care at this point. Could consider consult to PM&R for L4-5 HEMANT.
[2020-12-18 17:20] LABS: Glucose,Whole Blood 282 mg/dL (75-99)
[2020-12-18 20:30] LABS: Glucose,Whole Blood 250 mg/dL (75-99)
[2020-12-18] MEDS ORDERED: amLODIPine 10 MG TAB PO SCH (21:00)
[2020-12-18] MEDS ORDERED: lisinopriL 20 MG TAB PO SCH (21:00)
[2020-12-18] MEDS ORDERED: DESVENLAFAXINE SUCCINATE 50 MG TAB.ER.24H PO SCH (21:00)
[2020-12-19 07:37] LABS: Glucose,Whole Blood 191 mg/dL (75-99)
[2020-12-19] MEDS: metFORMIN 500 MG TAB PO SCH (07:38)
[2020-12-19] MEDS: DEXAMETHASONE SOD PHOSPHATE 4 MG/ML 1 ML VIAL IVP SCH (07:38)
[2020-12-19 08:31] VITALS: BP 126/80; PULSE 95; RESP 18; TEMP 98.3
[2020-12-19] MEDS: INSULIN ASPART (NovoLOG) 100 UNIT/ML VIAL SQ SCH (08:55)
--- NOTE | 2020-12-19 09:41 | P.DS ---
Providers Date of admission: 12/18/20 06:39 Expected date of discharge: 12/19/20 Attending physician: Arias Mckeon Consults: 12/18/20 06:37 Consult Physician Routine Consulting Provider: Benton Mckeon Consult Reason/Comments: backPainROcauduEquina Do you want consulting provider notified?: Yes Primary care physician: Tono Siddiqui [facility] Course: HISTORY OF PRESENT ILLNESS This is a 45-year-old female patient of Dr. Siddiqui with past medical history of hypertension, diabetes mellitus type 2, depression. Patient said hospitalization due to lymphadenopathy of the lower left extremity and left groin. Patient now states that she has had a pinching feeling in the right side of her lower back that started about 3-4 weeks ago that comes and goes in the lower back feels tight. She tried to exercise on a ball instruction and also walking and now the pain continues to stay and rated at 10/10 yesterday. She denies any recent have fever lifting or extreme exercise. 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 She states that yesterday she did have loss of bladder control which she described as getting up to the bathroom during the night every 2 hours and then she couldn't hold it. No loss of bowel control. She states when she sneezes or coughs she loses bladder control. Patient presented to [facility] emergency center for evaluation. Vital signs stable. WBC 11.2, hemoglobin 12.8. Electrolytes and renal function normal. Blood sugar 167. Liver function tests normal. Urina lysis negative for infection. Coronavirus PCR not detected. CAT scan of the lumbar spine revealed mild posterior disc bulging at L5-S1. No significant spinal stenosis. No fracture. No adverse change compared to old exam. CAT scan of the sacrum revealed minor degenerative disc changes at L4-5 and L5- S1. No fracture. Patient has been seen by Dr. Mckeon and MRI of the lumbar spine has been o rdered. 12/19: MRI of the lumbar spine revealed mild degenerative changes. No suspicious enhancement is evident. Dr. Suazo's and has recommended conservative care, consider consult to pain management for L4-5 FOR steroid injection. Patient is able to ambulate without difficulty, no bladder or bowel loss of control. She received 1 dose of Dilaudid IV yesterday afternoon, now baclofen. She is currently on IV Decadron which will be transitioned to oral and patient will be discharged home today in stable condition. DISCHARGE DIAGNOSES 1. Back pain secondary to degenerative disc disease. 2. Previous admission for Lymphadenopathy left lower extremity, resolved. 3. Hypertension. 4. Diabetes mellitus type 2 uncontrolled with hyperglycemia. 5. Recurrent depression. DISCHARGE PLAN Home. Greater than 35 minutes was utilized and coordinating patient's discharge. Impression and plan of care have been directed as dictated by the signing physician. Shanel Us nurse practitioner acting as scribe for signing physician. Patient Condition at Discharge: Good Plan - Discharge Summary Discharge Rx Participant: Yes New Discharge Prescriptions: New Baclofen 5 mg PO TID #30 tab Dexamethasone [Decadron] 4 mg PO DAILY #5 tablet Continue Desvenlafaxine Succinate [Pristiq ER] 50 mg PO HS metFORMIN HCL ER [Glucophage XR] 500 mg PO BID lisinopriL [Zestril] 20 mg PO HS amLODIPine [Norvasc] 10 mg PO HS Discharge Medication List Desvenlafaxine Succinate [Pristiq ER] 50 mg PO HS 10/22/20 [History] amLODIPine [Norvasc] 10 mg PO HS 10/22/20 [History] lisinopriL [Zestril] 20 mg PO HS 10/22/20 [History] metFORMIN HCL ER [Glucophage XR] 500 mg PO BID 10/22/20 [History] Baclofen 5 mg PO TID #30 tab 12/19/20 [Rx] Dexamethasone [Decadron] 4 mg PO DAILY #5 tablet 12/19/20 [Rx] Follow up Appointment(s)/Referral(s): [facility]-STAFF] - 1 Week (please call for an appointment thank you ) Tono Siddiqui MD [Primary Care Provider] - 1 Week Benton Mckeon DO [Doctor of Osteopathic Medicine] - 1 Week (please call for an appointment if needed next week ) Patient Instructions/Handouts: Acute Low Back Pain (GEN) Activity/Diet/Wound Care/Special Instructions: Please provide phone number for pain management for follow-up outpatient Discharge Disposition: HOME SELF-CARE
== END 2020-12-19 10:09 | disposition home or self-care (01) ==
LOC: EC 02:48 → 6NMEDSUR 06:39
PROVIDERS: ADMIT Internal Medicine Geriatric Medicine; ATTEND Internal Medicine Geriatric Medicine
DX: M51.17 Intervertebral disc disorders with radiculopathy, lumbosacral region (principal); M47.26 Other spondylosis with radiculopathy, lumbar region; E11.65 Type 2 diabetes mellitus with hyperglycemia; N39.3 Stress incontinence (female) (male); I10 Essential (primary) hypertension; F33.9 Major depressive disorder, recurrent, unspecified; E66.01 Morbid (severe) obesity due to excess calories; Z68.41 Body mass index [BMI] 40.0-44.9, adult; Z20.822 Contact with and (suspected) exposure to COVID-19; Z79.84 Long term (current) use of oral hypoglycemic drugs; Z79.899 Other long term (current) drug therapy; Z88.0 Allergy status to penicillin; Z90.49 Acquired absence of other specified parts of digestive tract; Z98.891 History of uterine scar from previous surgery; Z87.898 Personal history of other specified conditions; Z98.51 Tubal ligation status; Z83.3 Family history of diabetes mellitus; Z82.49 Family history of ischemic heart disease and other diseases of the circulatory system; Z80.9 Family history of malignant neoplasm, unspecified
CPT/HCPCS: 96376 ×2; 96361 ×2; 96375 ×2; 96374; 99284; 36415; 80053; 83735; 84100; 85025; 85610; 85730; 81003; 87635; 72131; 72192; 72158; G0378 ×2; J1100 ×2; J1170; J1885

== ENCOUNTER 2022-02-10 11:24 | Day surgery (SDC) | payer OTHER ==
[2022-02-08 10:14] VITALS: BMI 40.3
[~2022-02-10 11:24] MED LIST: LACTATED RINGERS 1,000 ML IV SCH
[2022-02-10 12:08] VITALS: TEMP 97.8
[2022-02-10 12:17] LABS: Glucose,Whole Blood 152 mg/dL (70-110)
[2022-02-10] MEDS ORDERED: LACTATED RINGERS 1,000 ML IV ONE (12:17)
[2022-02-10] MEDS ORDERED: LIDOCAINE 2% INJ 20 MG/ML (2 ML VIAL) ONE (12:59)
[2022-02-10] MEDS ORDERED: PROPOFOL 10 MG/ML 20 ML VIAL IV ONE (12:59)
--- NOTE | 2022-02-10 13:28 | P.PCN ---
Date of Procedure: 02/10/22 Preoperative Diagnosis: Diarrhea, colon cancer screening Postoperative Diagnosis: Diarrhea, colon cancer screening Procedure(s) Performed: Colonoscopy with biopsy Anesthesia: MAC Surgeon: Noemi Hedrick Pathology: other Condition: stable Disposition: PACU Indications for Procedure: Patient presents with diarrhea 5-6 times a day and abdominal cramps Description of Procedure: The patient's taken to the endoscopy suite where colonoscope is passed per rectum to the terminal ileum. She has a good prep. There is a little liquid material which is easily aspirated. Grossly there was no evidence of polyp, mass lesion, ulcer, stricture or mucosal abnormality. Small internal hemorr hoids were seen on retroflexion of the scope. Biopsies were obtained in the terminal ileum and some separate biopsies were obtained randomly throughout the colon to rule out microscopic inflammation. She tolerated the procedure without difficulty and is taken to recovery room in satisfactory condition. We'll call with the report of the biopsies and have further recommendations to follow. Likely repeat colonoscopy in 10 years if nothing changes with the bowel habits. Plan - Discharge Summary Discharge Rx Participant: No New Discharge Prescriptions: No Action Desvenlafaxine Succinate [Pristiq ER] 50 mg PO HS metFORMIN HCL ER [Glucophage XR] 500 mg PO BID lisinopriL [Zestril] 20 mg PO HS amLODIPine [Norvasc] 10 mg PO HS Cholecalciferol [Vitamin D3 (25 Mcg = 1000 Iu)] 50 mcg PO DAILY Discharge Medication List Desvenlafaxine Succinate [Pristiq ER] 50 mg PO HS 10/22/20 [History] amLODIPine [Norvasc] 10 mg PO HS 10/22/20 [History] lisinopriL [Zestril] 20 mg PO HS 10/22/20 [History] metFORMIN HCL ER [Glucophage XR] 500 mg PO BID 10/22/20 [History] Cholecalciferol [Vitamin D3 (25 Mcg = 1000 Iu)] 50 mcg PO DAILY 02/08/22 [History] Discharge Disposition: HOME SELF-CARE
[2022-02-10 13:30] VITALS: RESP 16
[2022-02-10 13:43] VITALS: BP 169/91; PULSE 71
== END 2022-02-10 13:57 | disposition home or self-care (01) ==
LOC: ORWHC2ENDO 11:24
PROVIDERS: ATTEND Surgery
DX: R19.7 Diarrhea, unspecified (principal); I10 Essential (primary) hypertension; E66.01 Morbid (severe) obesity due to excess calories; Z68.41 Body mass index [BMI] 40.0-44.9, adult; Z82.49 Family history of ischemic heart disease and other diseases of the circulatory system; Z98.51 Tubal ligation status; Z79.899 Other long term (current) drug therapy
CPT/HCPCS: 81025; 88305; 45380; J2704; J2001

== ENCOUNTER 2022-08-06 11:09 | Emergency (ER) | payer OTHER ==
[2022-08-06] MEDS ORDERED: ONDANSETRON ODT 4 MG TAB PO STA (11:39)
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
--- NOTE | 2022-08-06 12:09 | CT ---
EXAMINATION TYPE: CT brain wo con DATE OF EXAM: 08/06/2022 COMPARISON: None HISTORY: 46-year-old female head pain, left head injury TECHNIQUE: Examination was done in axial plane without intravenous contrast. Coronal and sagittal r econstructions performed. CT DLP: 1080.2 mGycm Automated exposure control for dose reduction was used. FINDINGS: There is no evidence of acute intracranial hemorrhage, acute ischemic changes, mass, mass-effect, or extra-axial fluid collection. There is no effacement of cerebral sulci or basal subarachnoid cister ns. There is no hydrocephalus. There is no midline shift. Hall-white matter distinction is preserv ed. Paranasal sinuses and mastoid air cells well pneumatized. Orbits and globes are intact. Slight rightw dee nasal septal deviation. IMPRESSION: No acute intracranial abnormality seen.
[2022-08-06 12:35] VITALS: TEMP 98.4
[2022-08-06 12:40] VITALS: BP 120/82; PULSE 66; RESP 16
== END 2022-08-06 12:42 | disposition home or self-care (01) ==
LOC: EC 11:09
DX: S09.90XA Unspecified injury of head, initial encounter (principal); E11.9 Type 2 diabetes mellitus without complications; I10 Essential (primary) hypertension; F32.A Depression, unspecified; Z79.84 Long term (current) use of oral hypoglycemic drugs; Z79.899 Other long term (current) drug therapy; Z88.0 Allergy status to penicillin; W22.8XXA Striking against or struck by other objects, initial encounter; Y99.0 Civilian activity done for income or pay
CPT/HCPCS: 70450; 99284

== ENCOUNTER 2024-04-18 23:00 | Emergency (ER) | payer OTHER ==
[2024-04-18] MEDS: ONDANSETRON 4 MG/2 ML VIAL IVP STA (23:36)
[2024-04-18] MEDS: SODIUM CHLORIDE 0.9% 2,000 ML IV STA (23:37)
[2024-04-18] MEDS: KETOROLAC 15 MG/ML 1 ML VIAL IVP STA (23:39)
[2024-04-18 23:43] LABS: Basophils % (A) 0 %; Eosinophils # (A) 0.4 k/uL (0-0.7); Eosinophils % (A) 2 %; HCT 44.5 % (34.0-46.0); HGB 14.2 gm/dL (11.4-16.0); Lymphocytes # (A) 2.1 k/uL (1.0-4.8); Lymphocytes % (A) 11 %; MCH 27.2 pg (25.0-35.0); Mean Platelet Volume 7.8; Monocytes # (A) 0.6 k/uL (0-1.0); Monocytes % (A) 3 %; Neutrophils # (A) 14.9 k/uL (1.3-7.7); Neutrophils % (A) 82 %; Platelet Count 395 k/uL (150-450); RBC 5.23 m/uL (3.80-5.40); RDW 14.2 % (11.5-15.5)
[2024-04-19 00:10] LABS: ALT 15 U/L (4-34); AST 22 U/L (14-36); African American GFR (CKD) >90 (>60 ml/min/1.73 sqM); Albumin 4.3 g/dL (3.5-5.0); Alkaline Phosphatase 75 U/L (38-126); Anion Gap 9 mmol/L; Blood Urea Nitrogen 24 mg/dL (7-17); Calcium 9.3 mg/dL (8.4-10.2); Carbon Dioxide 20 mmol/L (22-30); Chloride 106 mmol/L (98-107); Glucose 227 mg/dL (74-99); Lipase 65 U/L (23-300); Non-African American GFR(CKD) >90 (>60 ml/min/1.73 sqM); Potassium 4.1 mmol/L (3.5-5.1); Sodium 135 mmol/L (137-145); Total Bilirubin 0.6 mg/dL (0.2-1.3); Total Protein 7.2 g/dL (6.3-8.2)
--- NOTE | 2024-04-19 00:24 | ED ---
General Adult HPI - General Chief complaint: Nausea/Vomiting/Diarrhea Stated complaint: abd pain,NVD Time Seen by Provider: 04/18/24 23:05 Source: patient Mode of arrival: ambulatory Limitations: no limitations - History of Present Illness Initial comments: 48-year-old female with past medical history of diabetes, hypertension who presents emergency department with nausea and vomiting. Patient states that she took 2 iron pills earlier this evening and shortly afterwards she developed cramping in her abdomen with several episodes of nausea and vomiting. Patient is unsure if the iron supplements are what did this to her. She denies eating any tainted foods. No sick contacts. She denies any fevers. No chest pain, shortness of breath or cough. States that the abdominal pain is generalized. She has had 4 episodes of vomiting. She took some Tums at home without any relief. She denies dysuria, hematuria or difficulty voiding. Does report to several episodes of loose watery stool. Denies recent antibiotics or travel. No history of C. difficile. Denies black or bloody stools. No other alleviating, precipitating or modifying factors - Related Data Home Medications Medication Instructions Recorded Confirmed Desvenlafaxine Succinate [Pristiq 50 mg PO HS 10/22/20 02/08/22 ER] amLODIPine [Norvasc] 10 mg PO HS 10/22/20 02/08/22 lisinopriL [Zestril] 20 mg PO HS 10/22/20 02/08/22 metFORMIN HCL ER [Glucophage XR] 500 mg PO BID 10/22/20 02/08/22 Cholecalciferol [Vitamin D3 (25 50 mcg PO DAILY 02/08/22 02/08/22 Mcg = 1000 Iu)] Previous Rx's Medication Instructions Recorded Ondansetron Odt [Zofran Odt] 4 mg PO Q8HR PRN #20 tab 04/19/24 Allergies Allergy/AdvReac Type Severity Reaction Status Date / Time amoxicillin [Amoxicillin] Allergy Rash/Hives Verified 04/18/24 23:04 Penicillins Allergy Unknown Verified 04/18/24 23:04 Childhood Review of Systems ROS Statement: Those systems with pertinent positive or pertinent negative responses have been documented in the HPI. ROS Other: All systems not noted in ROS Statement are negative. Past Medical History Past Medical History: Diabetes Mellitus, Hypertension Additional Past Medical History / Comment(s): Pre-diabetic. History of Any Multi-Drug Resistant Organisms: None Reported Past Surgical History: Section, Cholecystectomy, Tubal Ligation Additional Past Surgical History / Comment(s): Section X1. Past Anesthesia/Blood Transfusion Reactions: No Reported Reaction Past Psychological History: Depression Smoking Status: Never smoker Past Alcohol Use History: Rare Past Drug Use History: None Reported - Past Family History Mother Family Medical History: Coronary Artery Disease (CAD), Diabetes Mellitus Father Family Medical History: Coronary Artery Disease (CAD) General Exam Limitations: no limitations General appearance: alert, in no apparent distress Head exam: Present: atraumatic, normocephalic, normal inspection Eye exam: Present: normal appearance, PERRL, EOMI. Absent: scleral icterus, conjunctival injection, periorbital swelling ENT exam: Present: normal exam, mucous membranes moist Neck exam: Present: normal inspection. Absent: tenderness, meningismus, lymphadenopathy Respiratory exam: Present: normal lung sounds bilaterally. Absent: respiratory distress, wheezes, rales, rhonchi, stridor Cardiovascular Exam: Present: regular rate, normal rhythm, normal heart sounds. Absent: systolic murmur, diastolic murmur, rubs, gallop, clicks GI/Abdominal exam: Present: soft, normal bowel sounds. Absent: distended, tenderness, guarding, rebound, rigid Extremities exam: Present: normal inspection, full ROM, normal capillary refill. Absent: tenderness, pedal edema, joint swelling, calf tenderness Back exam: Present: normal inspection Neurological exam: Present: alert, oriented X3, CN II-XII intact Psychiatric exam: Present: normal affect, normal mood Skin exam: Present: warm, dry, intact, normal color. Absent: rash Course Vital Signs 04/18/24 04/19/24 04/19/24 23:01 00:07 01:29 Temperature 97.3 F L 97.6 F Pulse Rate 127 H 96 92 Respiratory 20 18 19 Rate Blood Pressure 112/71 127/81 122/78 O2 Sat by Pulse 95 96 96 Oximetry Medical Decision Making - Medical Decision Making Was pt. sent in by a medical professional or institution (, PA, CONTACT CENTER ENGINEER, urgent care, hospital, or long-term...) When possible be specific @ -No Did you speak to anyone other than the patient for history (EMS, parent, family, police, friend...)? What history was obtained from this source @ -No Did you review nursing and triage notes (agree or disagree)? Why? @ -I reviewed and agree with nursing and triage notes Were old charts reviewed (outside hosp., previous admission, EMS record, old EKG, old radiological studies, urgent care reports/EKG's, long-term records)? Report findings @ -No old charts were reviewed Differential Diagnosis (chest pain, altered mental status, abdominal pain women, abdominal pain men, vaginal bleeding, weakness, fever, dyspnea, syncope, headache, dizziness, GI bleed, back pain, seizure, CVA, palpatations, mental health, musculoskeletal)? @ -Differential Abdominal Pain Women: Appendicitis, Cholecystitis, diverticulosis, ischemic bowel, pancreatitis, hepatitis, UTI, gastroenteritis, AAA, incarcerated hernia, bowel obstruction, constipation, inflammatory bowel, hepatitis, peptic ulcer disease, splenic infarction, perforated viscus, vulvitis, ovarian torsion, PID, kidney stone, placenta abruption, this is not meant to be an all-inclusive list EKG interpreted by me (3pts min.). @ -Not done X-rays interpreted by me (1pt min.). @ -Yes which demonstrates enteritis versus obstruction CT interpreted by me (1pt min.). @ -None done U/S interpreted by me (1pt. min.). @ -None done What testing was considered but not performed or refused? (CT, X-rays, U/S, labs)? Why? @ -CT was considered however patient is pain-free without nausea at this time and does report to several episodes of diarrhea What meds were considered but not given or refused? Why? @ -None Did you discuss the management of the patient with other professionals (trish funk i.e. , PA, CONTACT CENTER ENGINEER, lab, RT, psych nurse, social service worker, traffic agent, teacher, flight communications officer, case coordinator)? Give summary @ -No Was smoking cessation discussed for >3mins.? @ -No Was critical care preformed (if so, how long)? @ -No Were there social determinants of health that impacted care today? How? (Homelessness, low income, unemployed, alcoholism, drug addiction, transportation, low edu. Level, literacy, decrease access to med. care, half-way, rehab)? @ -No Was there de-escalation of care discussed even if they declined (Discuss DNR or withdrawal of care, Hospice)? DNR status @ -No What co-morbidities impacted this encounter? (DM, HTN, Smoking, COPD, CAD, Cancer, CVA, ARF, Chemo, Hep., AIDS, mental health diagnosis, sleep apnea, morbid obesity)? @ -None Was patient admitted / discharged? Hospital course, mention meds given and route, prescriptions, significant lab abnormalities, going to OR and other pertinent info. @ -Upon arrival patient seen and evaluated in room 11. Thorough history and physical exam was performed. IV access was established. Laboratory studies are conducted. She was given Toradol for pain control and Zofran for nausea. X- ray of the abdomen was performed and discussed with the patient. Her symptoms are clinically consistent with enteritis. Patient feels much improved at this time and feel stable for discharge home at this time. Patient is to follow-up with her primary care doctor in 2 to 4 days. Return should she have any new or worsening symptoms. Patient agreeable to plan was discharged in stable condition Undiagnosed new problem with uncertain prognosis? @ -No Drug Therapy requiring intensive monitoring for toxicity (Heparin, Nitro, Insulin, Cardizem)? @ -No Were any procedures done? @ -No Diagnosis/symptom? @ -Acute abdominal pain, acute nausea, vomiting, diarrhea Acute, or Chronic, or Acute on Chronic? @ -Acute Uncomplicated (without systemic symptoms) or Complicated (systemic symptoms)? @ -Complicated Side effects of treatment? @ -No Exacerbation, Progression, or Severe Exacerbation? @ -No Poses a threat to life or bodily function? How? (Chest pain, [place], [place], pneumonia, PE, COPD, DKA, ARF, appy, cholecystitis, CVA, Diverticulitis, Homicidal, Suicidal, threat to staff... and all critical care pts) @ -No - Lab Data Result diagrams: 04/18/24 23:29 04/18/24 23:29 Lab Results 04/18/24 04/18/24 04/19/24 Range/Units 23:29 23: 00:44 WBC 18.0 H (3.8-10.6) k/uL RBC 5.23 (3.80-5.40) m/uL Hgb 14.2 (11.4-16.0) gm/dL Hct 44.5 (34.0-46.0) % MCV 85.0 (80.0-100.0) fL MCH 27.2 (25.0-35.0) pg MCHC 32.0 (31.0-37.0) g/dL RDW 14.2 (11.5-15.5) % Plt Count 395 (150-450) k/uL MPV 7.8 Neutrophils % 82 % Lymphocytes % 11 % Monocytes % 3 % Eosinophils % 2 % Basophils % 0 % Neutrophils # 14.9 H (1.3-7.7) k/uL Lymphocytes # 2.1 (1.0-4.8) k/uL Monocytes # 0.6 (0-1.0) k/uL Eosinophils # 0.4 (0-0.7) k/uL Basophils # 0.0 (0-0.2) k/uL Sodium 135 L (137-145) mmol/L Potassium 4.1 (3.5-5.1) mmol/L Chloride 106 (98-107) mmol/L Carbon Dioxide 20 L (22-30) mmol/L Anion Gap 9 mmol/L BUN 24 H (7-17) mg/dL Creatinine 0.60 (0.52-1.04) mg/dL Est GFR (CKD-EPI)AfAm >90 (>60 ml/min/1.73 sqM) Est GFR (CKD-EPI)NonAf >90 (>60 ml/min/1.73 sqM) Glucose 227 H (74-99) mg/dL Calcium 9.3 (8.4-10.2) mg/dL Total Bilirubin 0.6 (0.2-1.3) mg/dL AST 22 (14-36) U/L ALT 15 (4-34) U/L Alkaline Phosphatase 75 (38-126) U/L Total Protein 7.2 (6.3-8.2) g/dL Albumin 4.3 (3.5-5.0) g/dL Lipase 65 (23-300) U/L Urine Color Light Yellow Urine Appearance Clear (Clear) Urine pH 5.5 (5.0-8.0) Ur Specific [place] 1.019 (1.001-1.035) Urine Protein Negative (Negative) Urine Glucose (UA) Negative (Negative) Urine Ketones Negative (Negative) Urine Blood Negative (Negative) Urine Nitrite Negative (Negative) Urine Bilirubin Negative (Negative) Urine Urobilinogen <2.0 (<2.0) mg/dL Ur Leukocyte Esterase Negative (Negative) Disposition Clinical Impression: Nausea and vomiting, Diarrhea Disposition: HOME SELF-CARE Condition: Stable Instructions (If sedation given, give patient instructions): Acute Nausea and Vomiting (ED), Acute Diarrhea (ED) Additional Instructions: Please use the Zofran as needed for any residual nausea. Follow-up with your primary care doctor in 2 to 4 days. If you have any new or worsening symptoms or your abdominal pain returns. Return to the emergency department Prescriptions: Ondansetron Odt [Zofran Odt] 4 mg PO Q8HR PRN #20 tab PRN Reason: Nausea Is patient prescribed a controlled substance at d/c from ED?: No Referrals: Tono Siddiqui [Primary Care Provider] - 1-2 days Time of Disposition: 01:15
--- NOTE | 2024-04-19 00:41 | XR ---
EXAM: XR Abdomen, 2 Views CLINICAL HISTORY: ITS.REASON XR Reason: pain TECHNIQUE: Frontal view of the abdomen/pelvis with upright view of the abdomen. COMPARISON: CT abdomen pelvis dated 10/23/20 FINDINGS: Intraperitoneal space: No free air. Gastrointestinal tract: Few air-fluid levels within nondilated appearing bowel loops in the right abdomen. Paucity of small bowel and colonic gas. Organs: Cholecystectomy clips in the right upper quadrant. Bones/joints: Unremarkable. No acute fracture. IMPRESSION: Few air-fluid levels within nondilated appearing bowel loops in the right abdomen. Paucity of small bowel and colonic gas. Nonspecific. Correlate for possible enteritis or obstruction.
[2024-04-19 00:53] LABS: Appearance,Urine Clear (Clear); Bilirubin,Urine Negative (Negative); Blood,Urine Negative (Negative); Color,Urine Light Yellow; Glucose,Urine (UA) Negative (Negative); Ketones,Urine Negative (Negative); Leukocyte Esterase,Urine Negative (Negative); Nitrite,Urine Negative (Negative); PH, Urine 5.5 (5.0-8.0); Protein,Urine Negative (Negative); Specific Gravity,Urine 1.019 (1.001-1.035); Urobilinogen,Urine <2.0 mg/dL (<2.0)
[2024-04-19] MEDS: ONDANSETRON 4 MG ODT STARTER PACK 2 TAB BTL PO STA (01:24)
[2024-04-19 01:34] VITALS: BP 122/78; PULSE 92; RESP 19; TEMP 97.6
== END 2024-04-19 01:32 | disposition home or self-care (01) ==
LOC: EC 23:00
DX: R11.2 Nausea with vomiting, unspecified (principal); R19.7 Diarrhea, unspecified; R10.84 Generalized abdominal pain
CPT/HCPCS: 80053; 83690; 85025; 74018; 99284; 96374; 96375; 96361 ×2; J2405; J1885; 36415; 81003

== ENCOUNTER → 2024-06-25 | Outpatient (CLI) | payer BC ==
--- NOTE | 2024-06-26 08:38 | MM ---
Reason for Exam: Screening (asymptomatic). Last mammogram was performed 1 year(s) and 3 month(s) ago. Patient History: Menarche at age 14. First Full-Term at age 20. Perimenopausal. US biopsy breast VAD LT - 2 on the Left side. Risk Values: Jennifer 5 year model risk: 0.9%. NCI Lifetime model risk: 8.1%. Prior Study Comparison: 01/25/2018 Bilateral Screening Mammogram, [facility]. 02/15/2019 Bilateral Screening Mammogram, [facility]. 03/23/2023 Bilateral Screening Mammogram, [facility]. Tissue Density: There are scattered areas of fibroglandular density. Findings: Analyzed By CAD. Stable biopsy clip in the left breast at the site of focal asymmetric tissue. There is occasional tiny benign-appearing round calcification bilaterally redemonstrated. There is no suspicious group of microcalcifications or new suspicious mass in either breast. Overall Assessment: Benign, BI-RAD 2 Management: Screening Mammogram of both breasts in 1 year. . Patient should continue monthly self-breast exams. A clinical breast exam by your physician is recommended on an annual basis. This exam should not preclude additional follow-up of suspicious palpable abnormalities. Note on Jennifer scores and lifetime risk: 1. A Jennifer score greater than 3% is considered moderate risk. If this is the case, consider specialist referral to assess eligibility for a risk reducing agent. 2. If overall lifetime risk for the development of breast cancer is 20% or higher, the patient may qualify for future screening with alternating mammogram and breast MRI. [facility], , 06/26/2024 8:35 AM. Electronically signed and approved by: Juan R Riddle M.D.
== END | disposition home or self-care (01) ==
LOC: RADMAMWWP 15:45
DX: Z12.31 Encounter for screening mammogram for malignant neoplasm of breast (principal); R92.323 Mammographic fibroglandular density, bilateral breasts; R92.1 Mammographic calcification found on diagnostic imaging of breast
CPT/HCPCS: 77067